=== PATIENT | male | born 1975 | race Caucasian/White ===

== ENCOUNTER 2018-02-24 15:37 | Inpatient (IN) | payer SELFPAY ==
--- NOTE | 2018-02-24 16:01 | EDPHY ---
H & P Stated Complaint: CP Time Seen by Provider: 02/24/18 16:00 HPI/ROS: CHIEF COMPLAINT: [ ] HISTORY OF PRESENT ILLNESS: [Need 4: Location, Duration, Severity, Quality, Context, Timing Modifying Factors, Associated S&S] REVIEW OF SYSTEMS: A comprehensive 10 point review of systems is otherwise negative aside from elements mentioned in the history of present illness. Source: Patient - Personal History Current Tetanus/Diphtheria Vaccine: Unsure Current Tetanus Diphtheria and Acellular Pertussis (TDAP): Unsure - Medical/Surgical History Hx Asthma: No Hx Chronic Respiratory Disease: No Hx Diabetes: No Hx Cardiac Disease: Yes Hx Renal Disease: No Hx Cirrhosis: No Hx Alcoholism: No Hx HIV/AIDS: No Hx Splenectomy or Spleen Trauma: No Other PMH: HTN, appy, - Social History Smoking Status: Never smoked - Physical Exam Exam: General Appearance: [Alert, no distress] Eyes: [Pupils equal and round no pallor or injection] ENT, Mouth: [Mucous membranes moist] Respiratory: [There are no retractions, lungs are clear to auscultation] Cardiovascular: [Regular rate and rhythm] Gastrointestinal: [Abdomen is soft and nontender, no masses, bowel sounds normal] Neurological: [A&O, normal motor function, normal sensory exam, normal cranial nerves] Skin: [Warm and dry, no rashes] Musculoskeletal: [Neck is supple nontender] Extremities: [symmetrical, full range of motion] Psychiatric: [Patient is oriented X 3, there is no agitation] Constitutional: Initial Vital Signs Temperature (C) 37 C 02/24/18 15:46 Heart Rate 106 H 02/24/18 15:46 Respiratory Rate 16 02/24/18 15:46 Blood Pressure 229/153 H 02/24/18 15:46 O2 Sat (%) 97 02/24/18 15:46 O2 Delivery Mode Room Air Allergies/Adverse Reactions: Sulfa (Sulfonamide Antibiotics) Allergy (Verified 02/24/18 15:44) Departure - Departure Referrals: NONE *PRIMARY CARE P,. [Primary Care Provider] - As per Instructions
--- NOTE | 2018-02-24 16:10 | EDPHY ---
HPI/HX/ROS/PE/MDM Narrative: CHIEF COMPLAINT: Chest pain HISTORY OF PRESENT ILLNESS: This patient is a 42 year old male with history of hypertension complaining of chest pain. Over the past week, he has experienced episodic chest discomfort. He describes this as a dull ache. He also has brief sharp midsternal pains, occasionally slightly to the right, which are associated with exertion. He has experienced the pain when doing much less activity than he unusually does. Today was walking to work, and had considerable discomfort around 9/10-10/10 pain, so severe he had to stop all activities. No shortness of breath, palpitations, diaphoresis. Currently, this has resolved somewhat and he rates his discomfort at about 2/10 severity. The patient had acid reflux symptoms several days ago, but his current symptoms do not feel similar. Denies personal history of hyperlipidemia or diabetes. He is adopted and does not know whether there is any family history of CAD at an early age. Nonsmoker. Endorses marijuana use. No recent cocaine methamphetamine or other illicit drug use. No fever, chills, shortness of breath, palpitations, vomiting, diarrhea, urinary complaints, headache, lightheadedness. REVIEW OF SYSTEMS: A comprehensive 10 system review of systems is otherwise negative aside from elements mentioned in the history of present illness and medical decision making. PAST MEDICAL HISTORY: Hypertension (not medicated) SOCIAL HISTORY: Social alcohol use. Nonsmoker. Endorses marijuana use. History of heavy alcohol use and cocaine use in the past. VITAL SIGNS: Reviewed by me. Patient was hypertensive and tachycardic at triage. 229/153, 106 GENERAL: Well-developed, well-nourished, looks well, reports mild discomfort. HEENT: Atraumatic. Eyes: No icterus, no injection. Mouth: moist mucous membranes. No erythema or lesions. Neck: supple with no adenopathy. LUNGS: Clear to auscultation bilaterally, no wheezes, rhonchi or rales. CARDIAC: Regular rate and rhythm, no rubs, murmurs or gallops. ABDOMEN: Soft, nontender, nondistended, bowel sounds normal. BACK: No CVA tenderness. EXTREMITIES: No trauma. No edema. Range of motion is normal throughout. NEURO: Alert and oriented, grossly nonfocal. SKIN: Warm and dry, no rash. PSYCHIATRIC: Normal mentation, no agitation. Portions of this note were transcribed by a medical reception. I personally performed a history, physical exam, medical decision making, and confirmed accuracy of information the transcribed note. ED Course: 42 y/o male presents with exertional chest pain. Patient hypertensive at 229/ 153 at triage. Currently 194/140. Reviewed 12-LEAD EKG: Please see the full report in [facility]. My interpretation: Sinus rhythm. Biatrial enlargement. ST elevation anterior leads suggestive LVH. Compared to prior EKG from 2013. Past medical records reviewed. History of borderline ascending aortic aneurysm on CT chest from 04/12/2013 when patient presented to the ED with chest pain. He states the pain then was different from today and felt as if it were piercing towards his back. He does not have that sensation currently. 16:16 Notified patient's POC troponin 2.73. Plan to consult with cardiology and call cardiac alert. 16:[address] Simpson, nursing unit manager. Plan to call [facility]. Dr. Simpson will consult. Sublingual nitroglycerin given. 16:20 Cardiac alert paged. 16:23 portable chest x-ray obtained. This demonstrates a wide mediastinum. This is of concern given the patient's history an ascending aortic aneurysm visualized in 2012. Patient started on labetalol for hypertension. 16:28 Dr. Simpson at bedside. Recommend blood pressure control, further evaluation with echocardiogram for wall motion abnormalities and CT scan for the chest. Patient's pain has fully resolved with single nitroglycerin. 16:46 Echocardiogram shows evidence of LVH, cardiomyopathy but no wall motion abnormalities. Given history of aortic aneurysm and abnormal CXR today, plan for CTA chest to r/o dissection or other acute processes. He will be admitted to the ICU for further monitoring and evaluation. Per Dr. Simpson, cardiac catheterization may be performed tomorrow on a non-emergent basis unless the patient's status changes following admission. He is currently hemodynamically stable. Nitro has relieved his pain completely. 16:57 Spoke with hospitalist service. Dr. Rose accepts admission to ICU. Dr. Simpson will manage the patient from a cardiac standpoint. Critical care time spent by me, Dr. Schultz exclusively with this patient was 40 minutes, exclusive of PA time and exclusive of procedures. The organ system at risk was cardiac and I gave nitroglycerin, IV antihypertensives, called a cardiac alert, consulted with Cardiology, and admitted to the ICU to prevent worsening of the patients condition. Critical care time included obtaining history, performing a physical exam, bedside monitoring of interventions, collecting and interpreting tests and discussion with consultants but not including time spent performing procedures. MDM: After history and physical examination, the differential for chest pain was considered, including but not limited to, myocardial ischemia, acute coronary syndrome, pulmonary embolus, aortic dissection. - Data Points Imaging Results: CXR Impression: 1. Borderline cardiomegaly has developed. Dictated By: Flip Smith MD CT Angiogram Impression: 1. Borderline dilatation of the ascending thoracic aorta at 4 cm, stable in appearance. No evidence for dissection. 2. Mild cardiomegaly. Results called and discussed with Dr. Bubba Pena on February 24, 2018 at 1751. Dictated By: Man Eastman MD Imaging: Discussed imaging studies w/ call worker Radiologist, I viewed and interpreted images myself Laboratory Results: Laboratory Results 02/24/18 16:00 02/24/18 16:00 Medications Given: Hydrocodone Bitart/Acetaminophen ([place] 5/325) 1 - 2 tab PO Q4HRS PRN PRN Reason: Pain, Moderate Able to Take PO Stop: 03/08/18 12:17 Last Admin: 02/27/18 16:15 Dose: 2 tab Amlodipine Besylate (Norvasc) 5 mg PO DAILY [facility] Stop: 08/26/18 09:59 Last Admin: 02/27/18 11:00 Dose: 5 mg Aspirin Buffered (Aspirin Ec) 81 mg PO DAILY [facility] Stop: 08/24/18 08:59 Last Admin: 02/27/18 09:11 Dose: 81 mg Atorvastatin Calcium (Lipitor) 20 mg PO DAILY [facility] Stop: 08/23/18 16:59 Last Admin: 02/26/18 11:39 Dose: Not Given Chlorhexidine Gluconate (Peridex) 15 ml PO BID [facility] Stop: 08/25/18 20:59 Last Admin: 02/27/18 09:11 Dose: 15 ml Fentanyl (Sublimaze) 50 - 100 mcg IVP Q1HR PRN PRN Reason: Pain, Severe (ok if taking po) Stop: 03/08/18 12:17 Last Admin: 02/27/18 19:32 Dose: 100 mcg Heparin Sodium (Porcine) (Heparin Sc Injection) 5,000 unit SC Q8HRS NE Stop: 08/26/18 05:59 Last Admin: 02/27/18 14:00 Dose: 5,000 unit Dexmedetomidine HCl 400 mcg/ (Sodium Chloride) 104 mls @ 0 mls/hr IV CONT NE; Titrate PRN Reason: Protocol Stop: 08/25/18 07:29 Last Admin: 02/26/18 13:12 Dose: 104 mls Cefazolin Sodium/Dextrose (Ancef 2 Gm) 100 mls @ 200 mls/hr IV Q8HRS NE PRN Reason: Protocol Stop: 02/27/18 22:29 Last Admin: 02/27/18 14:15 Dose: 100 mls Insulin Human Regular 100 unit (/ Sodium Chloride) 101 mls @ 0 mls/hr IV CONT NE; Per Protocol PRN Reason: Protocol Stop: 08/25/18 12:29 Last Admin: 02/26/18 13:42 Dose: 101 mls Sodium Chloride (Ns) 1,000 mls @ 25 mls/hr IV CONT NE Stop: 08/25/18 12:29 Last Admin: 02/26/18 13:18 Dose: 1,000 mls Famotidine/Sodium Chloride (Pepcid 20 Mg (Premix)) 50 mls @ 200 mls/hr IV Q12HRS NE Stop: 08/25/18 20:59 Last Admin: 02/27/18 09:11 Dose: 50 mls Dopamine HCl/Dextrose (Dopamine 1600 Mcg/Ml (Premix)) 250 mls @ 0 mls/hr IV CONT NE; Titrate PRN Reason: Protocol Stop: 08/25/18 15:29 Last Admin: 02/27/18 02:08 Dose: 250 mls Norepinephrine 16 mg/ Sodium (Chloride) 266 mls @ 1.99 mls/hr IV CONT NE; 2 MCG/MIN PRN Reason: Protocol Stop: 08/26/18 12:29 Last Admin: 02/27/18 15:43 Dose: 266 mls Lisinopril (Zestril) 40 mg PO DAILY NE Stop: 08/23/18 16:59 Last Admin: 02/26/18 11:39 Dose: Not Given Metoclopramide HCl (Reglan Injection) 10 mg IVP Q6HRS PRN PRN Reason: Nausea/Vomiting, Can't Take PO Stop: 08/25/18 12:17 Last Admin: 02/27/18 15:26 Dose: 10 mg Morphine Sulfate (Morphine) 2 - 4 mg IVP Q1HR PRN PRN Reason: Pain, Severe Unable to Take PO Stop: 03/08/18 12:17 Last Admin: 02/26/18 20:19 Dose: 4 mg Mupirocin (Bactroban 2%) 1 kandice NS BID NE PRN Reason: Protocol Stop: 02/28/18 20:59 Last Admin: 02/27/18 09:12 Dose: 1 kandice Pantoprazole Sodium (Protonix) 40 mg PO DAILY [facility] Stop: 08/26/18 08:59 Last Admin: 02/27/18 09:11 Dose: 40 mg Senna/Docusate Sodium (Senokot-S) 1 - 2 tab PO BID NE PRN Reason: Protocol Stop: 08/25/18 20:59 Last Admin: 02/27/18 09:11 Dose: 1 tab Discontinued Medications Adenosine (Adenosine) Confirm Administered Dose 12 mg .ROUTE .STK-MED ONE Stop: 02/26/18 06:27 Last Admin: 02/26/18 08:37 Dose: Not Given Albumin Human (Alburx 5) Confirm Administered Dose 1,000 ml IV .STK-MED ONE Stop: 02/26/18 06:28 Last Admin: 02/26/18 08:38 Dose: Not Given Aminocaproic Acid (Amicar) 15 gm IV ONCALL ONE Stop: 02/26/18 06:01 Last Admin: 02/26/18 08:38 Dose: Not Given Amiodarone HCl (Amiodarone Hcl) Confirm Administered Dose 300 mg .ROUTE .STK- MED ONE Stop: 02/26/18 06:27 Last Admin: 02/26/18 08:38 Dose: Not Given Amiodarone HCl (Amiodarone Hcl) Confirm Administered Dose 150 mg .ROUTE .STK- MED ONE Stop: 02/26/18 06:28 Last Admin: 02/26/18 08:38 Dose: Not Given Amlodipine Besylate (Norvasc) 5 mg PO DAILY [facility] Stop: 08/23/18 16:59 Last Admin: 02/26/18 11:38 Dose: Not Given Calcium Chloride (Calcium Chloride) Confirm Administered Dose 3 gm .ROUTE .ST- MED ONE Stop: 02/26/18 06:26 Last Admin: 02/26/18 08:38 Dose: Not Given Calcium Chloride (Calcium Chloride) Confirm Administered Dose 3 gm .ROUTE .[facility]- MED ONE Stop: 02/26/18 06:28 Last Admin: 02/26/18 08:38 Dose: Not Given Cefazolin Sodium (Ancef) Confirm Administered Dose 2 gm .ROUTE .[facility] ONE Stop: 02/26/18 06:27 Last Admin: 02/26/18 11:39 Dose: Not Given Chlorhexidine Gluconate (Hibiclens) 1 btl TP DAILY@2100 NE Stop: 02/25/18 21:01 Last Admin: 02/25/18 23:00 Dose: 1 btl Dopamine HCl/Dextrose (Dopamine 1600 Mcg/Ml (Premix)) Confirm Administered Dose 400 mg IV .[facility] ONE Stop: 02/26/18 06:26 Last Admin: 02/26/18 08:40 Dose: Not Given Furosemide (Lasix Injection) 20 mg IV ONCE ONE Stop: 02/26/18 23:31 Last Admin: 02/26/18 23:22 Dose: 20 mg Heparin Sodium (Porcine) (Heparin Injection) Confirm Administered Dose 10,000 unit .ROUTE .[facility] ONE Stop: 02/26/18 06:26 Last Admin: 02/26/18 08:40 Dose: Not Given Heparin Sodium (Porcine) (Heparin Injection) Confirm Administered Dose 4,000 unit .ROUTE .[facility] ONE Stop: 02/26/18 06:28 Last Admin: 02/26/18 08:40 Dose: Not Given Hydromorphone HCl (Dilaudid Gas Shovel Operator) 6 mg IV PRN PRN; Protocol PRN Reason: Pain, Severe Unable To Take Po Stop: 03/08/18 19:21 Last Admin: 02/27/18 05:56 Dose: 6 mg Labetalol HCl 200 mg/ Dextrose 200 mls @ 0 mls/hr IV EDNOW ONE; As Directed PRN Reason: Protocol Stop: 02/24/18 17:31 Last Admin: 02/24/18 17:57 Dose: 200 mls Sodium Bicarbonate 20 meq/Lidocaine HCl 10 ml/Parenteral Electrolytes 1,030 mls @ 0 mls/hr MISC ONCALL ONE PRN Reason: As Directed Stop: 02/26/18 06:01 Last Admin: 02/26/18 08:45 Dose: Not Given Cefazolin Sodium/Dextrose (Ancef 2 Gm) 100 mls @ 200 mls/hr IV ONCALL ONE PRN Reason: Protocol Stop: 02/26/18 06:29 Last Admin: 02/26/18 07:45 Dose: 100 mls Dopamine HCl/Dextrose (Dopamine 1600 Mcg/Ml (Premix)) 250 mls @ 0 mls/hr IV ONCALL ONE PRN Reason: As Directed Stop: 02/26/18 06:01 Last Admin: 02/26/18 08:40 Dose: Not Given Insulin Human Regular 100 unit (/ Sodium Chloride) 101 mls @ 0 mls/hr IV ONCALL ONE PRN Reason: As Directed Stop: 02/26/18 06:01 Last Admin: 02/26/18 08:40 Dose: Not Given Norepinephrine 16 mg/ Sodium (Chloride) 266 mls @ 0 mls/hr IV ONCALL ONE PRN Reason: As Directed Stop: 02/26/18 06:01 Last Admin: 02/26/18 08:44 Dose: Not Given Phenylephrine HCl 50 mg/ (Sodium Chloride) 255 mls @ 0 mls/hr IV ONCALL ONE PRN Reason: As Directed Stop: 02/26/18 06:01 Last Admin: 02/26/18 08:44 Dose: Not Given Verapamil HCl 5 mg/Nitroglycerin 2.5 mg/ Heparin Sodium (Porcine) 500 unit/ Sodium Bicarbonate 0.2 meq/Lactated Ringer's 303.2 mls @ 0 mls/hr MISC ONCALL ONE PRN Reason: As Directed Stop: 02/26/18 06:01 Last Admin: 02/26/18 07:15 Dose: 303.2 mls Nicardipine/Sodium Chloride (Cardene 0.1 Mg/Ml (Premix)) 200 mls @ 0 mls/hr IV ONCALL ONE PRN Reason: As Directed Stop: 02/26/18 06:01 Last Admin: 02/26/18 08:43 Dose: Not Given Heparin Sodium (Porcine) (Heparin 50 Units/Ml (Premix)) 500 mls @ 0 mls/hr IV CONT NE; Per Protocol PRN Reason: Protocol Stop: 03/05/19 15:44 Last Admin: 02/25/18 20:37 Dose: 500 mls Lactated Ringer's (Lr) 1,000 mls @ 0 mls/hr IV ONCE ONE PRN Reason: Per Protocol Stop: 02/26/18 06:42 Last Admin: 02/26/18 06:49 Dose: 1,000 mls Nitroglycerin/Dextrose (Nitroglycerin 200 Mcg/Ml (Premix)) 250 mls @ 0 mls/hr IV CONT NE; Titrate PRN Reason: Protocol Stop: 08/25/18 09:59 Last Admin: 02/26/18 13:11 Dose: 250 mls Sodium Nitroprusside 50 mg/ (Dextrose) 252 mls @ 0 mls/hr IV ONCALL ONE; Titrate PRN Reason: Protocol Stop: 02/26/18 11:31 Last Admin: 02/26/18 13:44 Dose: Not Given Nicardipine/Sodium Chloride (Cardene 0.1 Mg/Ml (Premix)) 200 mls @ 0 mls/hr IV CONT NE; Titrate PRN Reason: Protocol Stop: 08/25/18 12:29 Last Admin: 02/26/18 13:12 Dose: 200 mls Potassium Chloride (Potassium Cl 20 Meq (Premix)) 50 mls @ 0 mls/hr IV PRN PRN ; Protocol; As Directed PRN Reason: K+ 4mEq/L or below Stop: 02/27/18 06:17 Last Admin: 02/26/18 13:49 Dose: 50 mls Dopamine HCl/Dextrose (Dopamine 1600 Mcg/Ml (Premix)) 250 mls @ 0 mls/hr IV ONCALL ONE PRN Reason: As Directed Stop: 02/26/18 15:01 Last Admin: 02/26/18 12:25 Dose: 250 mls Albumin Human (Alburx 5) 500 mls @ 0 mls/hr IV ONCE ONE PRN Reason: As Directed Stop: 02/27/18 12:31 Last Admin: 02/27/18 12:32 Dose: 500 mls Labetalol HCl (Trandate Injection) 20 mg IVP EDNOW ONE Stop: 02/24/18 16:30 Last Admin: 02/24/18 16:32 Dose: 20 mg Lidocaine HCl (Lidocaine Hcl 2%) Confirm Administered Dose 200 mg .ROUTE .STK- MED ONE Stop: 02/26/18 06:28 Last Admin: 02/26/18 08:40 Dose: Not Given Lorazepam (Ativan Injection) 1 mg IVP EDNOW ONE Stop: 02/24/18 16:41 Last Admin: 02/24/18 16:43 Dose: 1 mg Lorazepam (Ativan Injection) 0.5 - 1 mg IVP Q4HRS PRN PRN Reason: Anxiety, Unable to Take PO Stop: 08/23/18 16:48 Last Admin: 02/25/18 23:40 Dose: 1 mg Magnesium Sulfate (Magnesium Sulfate) Confirm Administered Dose 4 gm .ROUTE .STK -MED ONE Stop: 02/26/18 06:29 Last Admin: 02/26/18 08:41 Dose: Not Given Mannitol (Mannitol 25%) 25 gm IVP ONCALL ONE Stop: 02/26/18 06:01 Last Admin: 02/26/18 08:41 Dose: Not Given Methylprednisolone Sodium Succinate (Solu-Medrol) Confirm Administered Dose 1 gm .ROUTE .STK-MED ONE Stop: 02/26/18 06:29 Last Admin: 02/26/18 08:42 Dose: Not Given Metoprolol Tartrate (Lopressor) 50 mg PO Q6HRS NE Stop: 02/26/18 12:01 Last Admin: 02/26/18 13:11 Dose: Not Given Midazolam HCl (Versed) 2 mg IVP ONCALL ONE Stop: 02/26/18 07:06 Last Admin: 02/26/18 07:13 Dose: 2 mg Milrinone Lactate/Dextrose (Primacor 200 Mcg/Ml (Premix)) Confirm Administered Dose 20 mg IV .STK-MED ONE Stop: 02/26/18 06:26 Last Admin: 02/26/18 08:42 Dose: Not Given Mupirocin (Bactroban 2%) 1 kandice NS ONCE ONE Stop: 02/26/18 06:01 Last Admin: 02/26/18 06:39 Dose: 0.5 gm Nicardipine/Sodium Chloride (Cardene 0.1 Mg/Ml (Premix)) Confirm Administered Dose 20 mg IV .STK-MED ONE Stop: 02/26/18 06:27 Last Admin: 02/26/18 08:42 Dose: Not Given Nitroglycerin (Nitrostat) 0.4 mg SL EDNOW ONE Stop: 02/24/18 16:25 Last Admin: 02/24/18 16:24 Dose: 0.4 mg Nitroglycerin/Dextrose (Nitroglycerin 200 Mcg/Ml (Premix)) Confirm Administered Dose 50 mg IV .STK-MED ONE Stop: 02/26/18 06:27 Last Admin: 02/26/18 08:44 Dose: Not Given Pantoprazole Sodium (Protonix) 40 mg IVP ONCE ONE Stop: 02/26/18 12:19 Last Admin: 02/26/18 14:24 Dose: 40 mg Papaverine HCl (Papaverine) Confirm Administered Dose 60 mg .ROUTE .STK-MED ONE Stop: 02/26/18 07:12 Last Admin: 02/26/18 07:15 Dose: 60 mg Protamine Sulfate (Protamine Sulfate) Confirm Administered Dose 400 mg IVP .STK- MED ONE Stop: 02/26/18 06:26 Last Admin: 02/26/18 08:45 Dose: Not Given Sodium Bicarbonate (Sodium Bicarbonate) Confirm Administered Dose 350 meq .ROUTE .STK-MED ONE Stop: 02/26/18 06:26 Last Admin: 02/26/18 08:45 Dose: Not Given Sodium Bicarbonate (Sodium Bicarbonate) 50 meq IVP ONCE ONE Stop: 02/26/18 16:01 Last Admin: 02/26/18 15:45 Dose: 50 meq Sodium Citrate (Acd-A) 500 ml MISC ONCALL ONE Stop: 02/26/18 06:01 Last Admin: 02/26/18 08:39 Dose: Not Given Sodium Citrate (Acd-A) Confirm Administered Dose 500 ml .ROUTE .STK-MED ONE Stop: 02/26/18 06:28 Last Admin: 02/26/18 08:39 Dose: Not Given Verapamil HCl (Verapamil Hcl) Confirm Administered Dose 5 mg .ROUTE .STK-MED ONE Stop: 02/26/18 07:12 Last Admin: 02/26/18 07:15 Dose: 5 mg Point of Care Test Results: Chemistry 02/24/18 02/24/18 16:29 16:00 POC Troponin I 2.72 ng/mL H ng/mL 2.73 ng/mL H ng/mL (0.00-0.08) (0.00-0.08) General Time Seen by Provider: 02/24/18 16:00 Initial Vital Signs: Initial Vital Signs Temperature (C) 37 C 02/24/18 15:46 Heart Rate 106 H 02/24/18 15:46 Respiratory Rate 16 02/24/18 15:46 Blood Pressure 229/153 H 02/24/18 15:46 O2 Sat (%) 97 02/24/18 15:46 O2 Delivery Mode Nasal Cannula O2 (L/minute) 2 Allergies/Adverse Reactions: Sulfa (Sulfonamide Antibiotics) Allergy (Verified 02/24/18 15:44) Home Medications: Medication Instructions Recorded Aspirin [Aspirin 325 mg (*)] 325 - 650 mg PO DAILY PRN 02/24/18 Herbals/Supplements -Info Only 1 ea PO DAILY 02/24/18 Departure - Departure Disposition: [facility] Inpatient Acute Clinical Impression: Acute coronary syndrome, Hypertensive emergency Hypertension Qualifiers: Hypertension type: essential hypertension Qualified Code(s): I10 - Essential ( primary) hypertension Chest pain Qualifiers: Chest pain type: chest pain due to myocardial ischemia Ischemic chest pain type : unspecified angina pectoris type Qualified Code(s): I25.9 - Chronic ischemic heart disease, unspecified Condition: Serious Report Scribed for: Brenda Schultz Report Scribed by: Kylie Ramey Date of Report: 02/24/18 Time of Report: 19:11
[2018-02-24] MEDS ORDERED: NITROGLYCERIN 0.4 MG BTL SL ONE ×2 (16:21→16:24)
[2018-02-24] MEDS ORDERED: LABETALOL HCL 5 MG/ML 20 ML MDV ONE (16:23)
[2018-02-24] MEDS ORDERED: LIDOCAINE 1% 300 MG/30 ML SDV ONE (16:24)
[2018-02-24] MEDS ORDERED: fentaNYL 100 MCG/2 ML INJ ONE (16:25)
[2018-02-24] MEDS ORDERED: IOPAMIDOL (ISOVUE-370) 150 ML BTL IV ONE (16:25)
[2018-02-24] MEDS ORDERED: MIDAZOLAM 2 MG/2 ML VIAL ONE (16:25)
[2018-02-24 16:26] LABS: PLATELET COUNT 189 10^3/uL (150-400)
[2018-02-24] MEDS ORDERED: LABETALOL HCL 5 MG/ML 20 ML MDV IVP ONE (16:29)
[2018-02-24] MEDS ORDERED: LABETALOL HCL 200 MG in D5W 200 ML IV SCH (16:30)
[2018-02-24] MEDS ORDERED: LORazepam 2 MG/ML INJ IVP ONE (16:40)
[2018-02-24] MEDS ORDERED: IOPAMIDOL (ISOVUE 370) 100 ML BTL IV ONE (16:51)
[2018-02-24] MEDS ORDERED: NITROGLYCERIN/DEXTROSE 250 ML IV SCH (17:00)
--- NOTE | 2018-02-24 17:03 | PDCARCONS ---
Cardiology Consult Reason for Consult: Chest pain abnormal EKG Chief Complaint: Chest pain Requesting Physician: Earlene History of Present Illness: 42-year-old male longstanding history of hypertension since childhood, noncompliant with medications over considerable amount of time presenting with a several week history of episodic chest discomfort. This has occurred with exertion. Last night it occurred at rest. He came to the emergency department for further evaluation. On arrival patient was found to be significantly hypertensive with systolic pressure of 250/150. He was having significant discomfort. This was relieved with nitroglycerin and labetalol. On my arrival he is pain-free. He denies shortness of breath. He has had no nausea vomiting. He has had no pain radiating to the back or groin. He has had no history of hematemesis or melena. He has had no syncope or near syncope. Patient does smoke. He has no history of diabetes or hyperlipidemia. He has not had a workup for secondary causes of hypertension. He had been on lisinopril in the past but has not been on medications for some time due to lack of insurance. Patient works as a natural resources technician. He does report binge alcohol use, occasional cocaine use, daily use of marijuana through edibles. EKG on my arrival shows left ventricular hypertrophy with left axis deviation. I can see ST elevation in the anterior precordial leads consistent with LVH. Nondiagnostic for ST segment elevation myocardial infarction. Echocardiogram done shows a hypertensive cardiomyopathy with reduced LV systolic function considerable left ventricular hypertrophy and no regional wall motion abnormalities. The proximal aorta is well seen and there is no dissection flap within the field of view. There is no pericardial effusion. History Information - Allergies/Home Medication List Allergies/Adverse Reactions: Sulfa (Sulfonamide Antibiotics) Allergy (Verified 02/24/18 15:44) Home Medications: Aspirin [Aspirin 325 mg (*)] 325 - 650 mg PO DAILY PRN 02/24/18 [Last Taken 11/06 16:00 650mg] Herbals/Supplements -Info Only 1 ea PO DAILY 02/24/18 [Last Taken Unknown] I have personally reviewed and updated: family history, medical history, social history, surgical history Past Medical History: - Past Medical History hypertension - Family History Positive for: non-pertinent - Social History Smoking Status: Current every day smoker Alcohol Use: Heavy Drug Use: Cocaine, Marijuana (cocaine use) Physical Exam Physical Exam: Temp Pulse Resp BP Pulse Ox 37 C 87 18 176/129 H 97 02/24/18 15:46 02/24/18 16:45 02/24/18 16:45 02/24/18 16:45 02/24/18 16:45 O2 (L/minute) 2 Constitutional: no apparent distress, not in pain Eyes: PERRL, anicteric sclera Ears, Nose, Mouth, Throat: moist mucous membranes Cardiovascular: regular rate and rhythym, pulses symmetric bilaterally, other ( S4), No JVD, No carotid bruit Peripheral Pulses: 1+: carotid (R), carotid (L), femoral (R), femoral (L), dorsalis-pedis (R), dorsalis-pedis (L) Respiratory: no respiratory distress, no rales or rhonchi, clear to auscultation Gastrointestinal: normoactive bowel sounds, soft, non-tender abdomen, no palpable masses Genitourinary: no bladder fullness Skin: warm, normal color, No rash Musculoskeletal: full muscle strength, no muscle tenderness Neurologic: sensation intact bilaterally, No weakness, No facial droop Psychiatric: interacting appropriately Lymph, Heme, Immunologic: no cervical LAD, no supraclavicular LAD Lab and Imaging 02/24/18 16:00 02/24/18 16:00 WBC 7.04 10^3/uL (3.80-9.50) 02/24/18 16:00 RBC 5.12 10^6/uL (4.40-6.38) 02/24/18 16:00 Hgb 15.2 g/dL (13.7-17.5) 02/24/18 16:00 POC Hgb 14.6 gm/dL (13.7-17.5) 02/24/18 16:35 Hct 42.6 % (40.0-51.0) 02/24/18 16:00 POC Hct 43 % (40-51) 02/24/18 16:35 MCV 83.2 fL (81.5-99.8) 02/24/18 16:00 MCH 29.7 pg (27.9-34.1) 02/24/18 16:00 MCHC 35.7 g/dL (32.4-36.7) 02/24/18 16:00 RDW 13.6 % (11.5-15.2) 02/24/18 16:00 Plt Count 189 10^3/uL (150-400) 02/24/18 16:00 MPV 9.3 fL (8.7-11.7) 02/24/18 16:00 Neut % (Auto) 65.1 % (39.3-74.2) 02/24/18 16:00 Lymph % (Auto) 22.3 % (15.0-45.0) 02/24/18 16:00 Schleicher % (Auto) 8.0 % (4.5-13.0) 02/24/18 16:00 Eos % (Auto) 3.0 % (0.6-7.6) 02/24/18 16:00 Baso % (Auto) 0.6 % (0.3-1.7) 02/24/18 16:00 Nucleat RBC Rel Count 0.0 % (0.0-0.2) 02/24/18 16:00 Absolute Neuts (auto) 4.59 10^3/uL (1.70-6.50) 02/24/18 16:00 Absolute Lymphs (auto) 1.57 10^3/uL (1.00-3.00) 02/24/18 16:00 Absolute Monos (auto) 0.56 10^3/uL (0.30-0.80) 02/24/18 16:00 Absolute Eos (auto) 0.21 10^3/uL (0.03-0.40) 02/24/18 16:00 Absolute Basos (auto) 0.04 10^3/uL (0.02-0.10) 02/24/18 16:00 Absolute Nucleated RBC 0.00 10^3/uL (0-0.01) 02/24/18 16:00 Immature Gran % 1.0 % (0.0-1.1) 02/24/18 16:00 Immature Gran # 0.07 10^3/uL (0.00-0.10) 02/24/18 16:00 POC Sodium 142 mEq/L (135-145) 02/24/18 16:35 Sodium 140 mEq/L (135-145) 02/24/18 16:00 POC Potassium 3.9 mEq/L (3.3-5.0) 02/24/18 16:35 Potassium 4.2 mEq/L (3.3-5.0) 02/24/18 16:00 POC Chloride 105 mEq/L (97-110) 02/24/18 16:35 Chloride 106 mEq/L (97-110) 02/24/18 16:00 Carbon Dioxide 25 mEq/l (22-31) 02/24/18 16:00 Anion Gap 9 mEq/L (8-16) 02/24/18 16:00 POC BUN 14 mg/dL (7-23) 02/24/18 16:35 BUN 16 mg/dL (7-23) 02/24/18 16:00 Creatinine 1.1 mg/dL (0.7-1.3) 02/24/18 16:00 POC Creatinine 1.2 mg/dL (0.7-1.3) 02/24/18 16:35 Estimated GFR > 60 02/24/18 16:00 Glucose 103 mg/dL (70-100) H 02/24/18 16:00 POC Glucose 101 mg/dL (70-100) H 02/24/18 16:35 Calcium 9.3 mg/dL (8.5-10.4) 02/24/18 16:00 POC Troponin I 2.72 ng/mL (0.00-0.08) H 02/24/18 16:29 Visualized and Interpreted Chest x-ray results: Yes Interpretation: Chest x-ray show prominence of aortic concerning for aortic dilatation. EKG Interpretation: Positive for: LVH A/P Assessment: 42-year-old male presenting with hypertensive emergency. Clinical history concerning for progressive angina in the setting of hypertension likely due to wall stress. Elevation in troponin suggest injury. EKG consistent with LVH and strain. Echo shows a hypertensive cardiomyopathy. Patient has had significant improvement with nitroglycerin. He has been administered labetalol with can improved blood pressure and heart rate. He has been given Ativan for anxiety. At this point he is clinically stable. Recommendations are for CT scan of the aorta to exclude dissection. Pending this result will plan for heparin and aggressive control blood pressure overnight. Risk stratification in the morning. Assessment for other end-organ damage with urinalysis. Drug screen to exclude other toxins. Aggressive secondary prevention. Low threshold to proceed to the catheterization lab tonight for recurrent symptoms or EKG changes or hemodynamic instability. Plan: Blood pressure control with beta-logan, nitrates, calcium logan, Sreekanth inhibitor. CT scan of the aorta tonight. Heparin pending result. Risk stratification in the morning, likely by angiography. Consider renal artery injection at that time to exclude renal artery stenosis. Review of Systems Review of Systems: - Review of Systems Constitutional: denies: chills, fever, malaise EENTM: no symptoms reported Respiratory: no symptoms reported Cardiac: chest pain. denies: edema, irregular heart rate, lightheadedness, palpitations, syncope Gastrointestinal/Abdominal: no symptoms reported Genitourinary: no symptoms Musculoskelatal: no symptoms Skin: no symptoms Neurological: anxiety Hematologic/Lymphatic: no symptoms reported
[2018-02-24] MEDS ORDERED: LABETALOL HCL 200 MG in D5W 200 ML IV ONE (17:30)
--- NOTE | 2018-02-24 17:48 | ASMTCMCOM ---
CM Note CM Note Notes: Pt presented to the ED through triage for chest pain and a Cardiac Alert was called. Pt has a history of untreated/unmanaged HTN since childhood. Pt used to take Lisinopril but hasn't been on medication recently due to lack of insurance. Pt also reports a past history of ETOH and cocaine use. Spoke w/pt and he states he contacted his friend Ranjit Wilde ([phone]) who later arrived to the ED. Pt requested assistance w/contacting his roommate, Rogerio Shelton ([phone]); this CM called but it went to voicemail and the message inbox was full. Ranjit states he will continue to try to contact Rogerio. Pt's mother, Yanna Collier ([phone]) lives in [place]; pt does not want her contacted at this time and will let staff know if he changes his mind. Pt states he also has a couple of brothers that don't live locally. Exact DC needs TBD/ unknown; pt would probably benefit from financial counseling, primary care referral, and possibly substance abuse resources if pt is interested, etc. CM to follow. Date Signed: 02/24/2018 05:48 PM Electronically Signed By:Usha Ann RN
[2018-02-24 18:21] LABS: CREATINE KINASE 160 IU/L (0-224)
[2018-02-24] MEDS ORDERED: NITROGLYCERIN/D5W 50 MG/250 ML BOTTLE IV ONE (18:30)
--- NOTE | 2018-02-24 18:51 | CPEKG ---
Test Reason : OPEN Blood Pressure : / mmHG Vent. Rate : 083 BPM Atrial Rate : 083 BPM P-R Int : 166 ms QRS Dur : 098 ms QT Int : 406 ms P-R-T Axes : 065 -19 -25 degrees QTc Int : 477 ms Sinus rhythm Biatrial enlargement Left ventricular hypertrophy Inferior infarct, age indeterminate Anterior infarct, old Confirmed by Brenda Schultz ([id number]) on 02/24/2018 6:51:16 PM Referred By: Confirmed By:Brenda Schultz
[2018-02-24] MEDS: ATORVASTATIN CALCIUM 20 MG TAB PO SCH (19:27)
[2018-02-24] MEDS: LISINOPRIL 40 MG TAB PO SCH (19:27)
[2018-02-24] MEDS: amLODIPine BESYLATE 5 MG TAB PO SCH (19:27)
[2018-02-24] MEDS: METOPROLOL TARTRATE 50 MG TAB PO SCH ×2 (19:27→23:11)
[2018-02-24 20:43] LABS: CREATINE KINASE 161 IU/L (0-224)
--- NOTE | 2018-02-24 20:51 | GHP ---
DATE OF ADMISSION: 02/24/2018 CHIEF COMPLAINT: Chest pain. HISTORY: This is a 42-year-old man with a longstanding history of untreated hypertension. He notes he has been diagnosed with high blood pressure essentially as a child. For the last week he has been having intermittent chest pain that over the last 24 hours became more severe and was occurring at r est when previously was only occurring with exertion. Upon arrival in the emergency department, he w as noted to have a blood pressure of 250/150 and was in significant amount of pain and was brought in as a cardiac alert. Ultimately, he was evaluated by Cardiology who did not feel that he required to go urgently to the rd lab technician. At the time of my evaluation, patient notes that his chest pain has no w resolved. He notes that other than some residual anxiety, currently feels well. He denies any rachel rtness of breath, nausea, vomiting, constipation, or diarrhea. PAST MEDICAL HISTORY: Includes hypertension with medication noncompliance. PAST SURGICAL HISTORY: Appendectomy. FAMILY HISTORY: Reviewed and is non pertinent. SOCIAL HISTORY: The patient is a daily tobacco user. He uses marijuana and cocaine occasionally. 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 He does admit to binge drinking behaviors. REVIEW OF SYSTEMS: A 10-point review of systems obtained and negative except as per HPI. HOME MEDICATIONS: Aspirin. ALLERGIES: Sulfa. PHYSICAL EXAMINATION: VITAL SIGNS: Currently blood pressure 165/114, heart rate 70, respiratory rat e 14, O2 saturation 94% on room air, temperature 36.7. GENERAL APPEARANCE: Well-developed, well-nou rished man who is awake and alert. He is in no acute distress. EYES: Anicteric. HENT: Oropharynx clear. CARDIOVASCULAR: Regular rate and rhythm, somewhat distant, without appreciated murmurs, rub s, or gallops. PULMONARY: CTA bilaterally. ABDOMEN: Soft, nontender, nondistended. EXTREMITIES: No clubbing, cyanosis, or edema. SKIN: Warm, dry, well perfused. NEURO/PSYCH: Oriented and appro priate. CLINICAL DATA: EKG personally reviewed and interpreted, showing LVH and LAD. There is ST elevation anterior leads that is most likely secondary to LVH. Chest x-ray personally reviewed and interpreted, shows borderline cardiomegaly, otherwise unremarkabl e. Chest and thorax CTA shows borderline dilation of the ascending thoracic aorta at 4 cm, stable in kandice earance without evidence of dissection. Echocardiogram was performed at bedside in the emergency department showing evidence of hypertensive cardiomyopathy with decreased LV function, but no regional wall motion abnormalities. LABORATORY DATA: CBC is unremarkable. Initial troponin elevated at 2.73. BNP of 1900, glucose of 1 01. ASSESSMENT/PLAN: This is a 42-year-old man with a longstanding history of untreated hypertension, pr esenting with acute coronary syndrome: 1. Acute coronary syndrome: The patient admitted with chest pain. Troponin elevation of 2.7. The patient does not have evidence of STEMI by EKG findings nor dynamic EKG changes and he is currently c hest pain free. Plan is for coronary angiogram in the morning. We will continue to trend troponins overnight. Cardiology has initiated nitroglycerin drip which will be continued overnight. 2. CT angiogram ruled out dissection or other etiology for his chest pain. Lipid panel and hemoglob in A1c will be obtained for help with secondary prevention. 3. Hypertensive emergency in the setting of above: The patient is currently on a nitroglycerin drip as per above with blood pressure improved. He has also been started on amlodipine, lisinopril, and metoprolol after receiving IV push labetalol in the emergency department. We will offer some degree of permissive hypertension with a goal of trying to reduce his blood pressure by about 25%. 4. Hypertensive cardiomyopathy: Formal echocardiogram report is currently pending, but this is note d per Dr. Simpson on his read of echocardiogram. Again, plan for angiography in the morning. 5. Hyperglycemia: Again, ordering a hemoglobin A1c. 6. Inpatient status: The patient will require greater than 48 hours stay for evaluation and managem ent of above given high risk presenting issues. 7. Patient is new to my care: Old records reviewed, summarized as per HPI and past medical history. Care plan reviewed with ER physician including plans for cardiology consultation. /[id number]/MODL
[2018-02-25 00:36] LABS: CREATINE KINASE 146 IU/L (0-224)
[2018-02-25 03:00] LABS: CREATINE KINASE 137 IU/L (0-224)
[2018-02-25] MEDS: METOPROLOL TARTRATE 50 MG TAB PO SCH ×4 (06:26→23:41)
[2018-02-25] MEDS: ATORVASTATIN CALCIUM 20 MG TAB PO SCH (08:09)
[2018-02-25] MEDS: amLODIPine BESYLATE 5 MG TAB PO SCH (08:09)
[2018-02-25] MEDS: LISINOPRIL 40 MG TAB PO SCH (08:09)
[2018-02-25] MEDS: ASPIRIN EC 81 MG TAB PO SCH (08:09)
--- NOTE | 2018-02-25 08:50 | PDPROPOC ---
Sedation Plan of Care Sedation Plan of Care: vital signs stable, mental status noted, patient educated of risks, benefits, alternatives, patient can tolerate sedation ASA Classification: ASA 3 Planned drugs: fentanyl, midazolam Mallampati Score: Class 1 Mallampati Reference Image: Patient passed 3-3-2 rule?: Yes
[2018-02-25] MEDS ORDERED: HEPARIN 10,000 UNIT/10 ML MDV (1,000 UNIT/ML) ONE (10:51)
[2018-02-25] MEDS ORDERED: VERAPAMIL 5 MG/2 ML VIAL ONE (10:51)
[2018-02-25] MEDS ORDERED: IOPAMIDOL (ISOVUE-370) 150 ML BTL IV ONE (10:51)
[2018-02-25] MEDS ORDERED: fentaNYL 100 MCG/2 ML INJ ONE (10:51)
[2018-02-25] MEDS ORDERED: MIDAZOLAM 2 MG/2 ML VIAL ONE (10:51)
[2018-02-25] MEDS ORDERED: LIDOCAINE 1% 300 MG/30 ML SDV ONE (10:51)
--- NOTE | 2018-02-25 11:13 | PDMN ---
Medical Necessity Medical necessity: Pt meets inpt criteria per MD order and MCG M-197, Hypertension, 2 days. Est LOS>2MN for management of hypertensive emergency (250/ 150 on admission, most recent 174/129) and chest pain, concerning for progressive angina, troponins elevated trending up, CK-MB's elevated, EKG consistent w/LVH and strain, ECHO shows hypertensive cardiomyopathy, relief of cp w/nitroglycerin. Angiogram in AM, NTG gtt overnight, BP control, ICU monitoring.
--- NOTE | 2018-02-25 11:59 | PDDXCAT ---
Diagnostic Cath Note - . Date: 02/25/18 Shaker Repairer: Calvin Indication: CCC Class III and IV angina on medical treatment High-risk criteria on non-invasive testing: severe resting left ventricular dysfunction (LVEF<35%) - Procedure Access: right wrist Procedure: left heart catheterization, coronary angiography, left ventriculogram , other (Abdominal aortogram) - Materials Left Heart Cath size: 5F Left Heart Cath materials: JL3.5, JR4.0, pigtail - Findings-Left Heart Catheterization LM: Unobstructed LAD: Large vessel 100% obstructed after a very large septal ripsaw matcher. LCX: 75% mid vessel stenosis RCA: Dominant vessel: 99% occluded proximally Ramus: Widely patent EDP: 12 mm of mercury LVEF: 35% Wall motion: Inferior hypokinesis. Abdominal aortogram reveals dual renal arteries to the right without focal stenosis. Single renal artery to the left without focal stenosis. No aneurysm within the field of view. Complications: None Estimated blood loss: <50ml Closure method: TR Band Assessment: Severe three-vessel coronary disease in the setting of severe LV dysfunction. No evidence of renal artery stenosis. Plan: Recommend coronary artery bypass grafting. If patient declines would consider PCI and stenting of the LAD followed by staged RCA circumflex revascularization. Patient will need aggressive medical therapy with clinical follow-up. Patient Problems: Problems Problem Status Onset Acute coronary syndrome Acute Hypertension Acute Hypertensive emergency Acute
[2018-02-25] MEDS ORDERED: HEPARIN/DEXTROSE 500 ML IV SCH ×2 (12:15→15:45)
--- NOTE | 2018-02-25 13:00 | GCON ---
DATE OF CONSULTATION: 02/25/2018 Patient is seen at the request of Dr. Simpson with the patient's permission. IMPRESSION: 1. [id number] myocardial infarction. 2. Hypertensive crisis. 3. Sulfa allergy. 4. Enlarged ascending aorta. RECOMMENDATIONS: This gentleman should stay in-house and undergo urgent coronary artery revasculariz ation with arterial conduits where suitable. We will use both internal mammary arteries if adequate and resect his left radial artery if adequate collateral flow exists. The remainder will be performe d with a venous conduit. We also will replace his ascending aorta and manage his left atrial appenda ge. Risks and complications were reviewed at length with the patient. He has no immediate family th at he wishes us to discuss it with. CHIEF COMPLAINT: A 42-year-old with a longstanding history of hypertension since childhood with hype rtensive heart disease on echo. He presented with episodic chest discomfort which persisted at home on the evening of admission, was admitted with blood pressure 250/150 and having significant discomfo rt relieved with nitroglycerin and labetalol. He was taken to the laborer general today and found to have s evere 3-vessel disease with moderate to severe LV dysfunction with inferior wall akinesis. He was al so noted to have a 4.1 cm ascending aorta. By history, aortic dissection was ruled out by echo and c ath. MEDICAL HISTORY: Otherwise as stated on his previous consults and includes hypertension. FAMILY HISTORY: None pertinent. The patient was adopted and knows of no medical history on his biol ogical side. SOCIAL HISTORY: He smokes every other day. Heavy alcohol abuse. Occasional cocaine and marijuana. REVIEW OF SYSTEMS: Otherwise unremarkable, except for Chief Complaint. PHYSICAL EXAMINATION: GENERAL: This is a well developed, 42-year-old gentleman lying supine in bed post cath in no apparent distress without having chest pain. HEENT: Normocephalic. PERRLA. EOMI. NECK: Without bruit, adenopathy or thyromegaly. HEART: Rate is regular without murmur, S3 or S4. LUNGS: Clear. ABDOMEN: Soft, nontender. Bowel sounds are active. RECTAL AND GENITAL: Exams wer e deferred. NEUROLOGICAL: He is grossly intact. Cath report was reviewed with Dr. Simpson. /[id number]/MODL
[2018-02-25] MEDS ORDERED: HEPARIN 10,000 UNIT/10 ML MDV (1,000 UNIT/ML) IVP PRN (15:35)
[2018-02-25 16:08] LABS: PLATELET COUNT 237 10^3/uL (150-400)
[2018-02-25 16:27] LABS: INR 0.95 (0.83-1.16); PROTIME(PATIENT) 12.9 SEC (12.0-15.0)
[2018-02-25 16:47] LABS: CREATINE KINASE 105 IU/L (0-224)
[2018-02-25] MEDS: LORazepam 2 MG/ML INJ IVP PRN ×2 (16:54→23:40)
--- NOTE | 2018-02-25 17:26 | HOSPPROG ---
Hospitalist Progress Note Assessment/Plan: Assessment: 42-year-old male presents with non ST-elevation myocardial infarction Plan: 1. NSTEMI. Present on admission, acute, secondary to critical multivessel coronary disease in left circumflex, LAD, RCA, peak troponin 3.4 -LDL 64, hemoglobin A1c 4.7% -patient currently chest pain-free -continue on aspirin, statin, HUYEN-inhibitor, beta-logan, nitroglycerin if patient experiences chest pain -appreciate cardiothoracic surgery consultation, plan for CABG tomorrow -patient had many questions regarding the time he will need to remain out of work, the duration of cardiac rehab, financially affording cardiac rehab in follow-up -I counseled the patient to the best my ability regarding these issues, but defer the exact time that he will need to remain out of work as well as the specifics regarding cardiac rehab to the primary cardiothoracic surgery service 2. Ascending aortic aneurysm. 4.1 cm on chest imaging, will receive repair during open heart surgery 3. Hypertensive emergency. Most likely provoked by critical coronary disease and non ST-elevation myocardial infarction with systolic blood pressure 250 -status post nitro drip, initiated amlodipine, HUYEN-inhibitor, beta-logan -discussed with Dr. Dany Simpson, he does not recommend overly aggressive lowering of the blood pressure beyond the current range of 120-160, as the patient will be at risk for further cardiac ischemia and/or stroke if lowered to quickly Diet. Cardiac, NPO in a.m. Prophylaxis. Low risk patient, SCDs Code. Full Disposition. Anticipated discharge uncertain this time, anticipated length stay greater than 48 hr for reasonable medical necessity including NSTEMI requiring CABG. Subjective: Denies any chest pain, reports he is uninsured, patient is feeling anxious regarding how he is going to finance his care Objective: Vital Signs Temp Pulse Resp BP Pulse Ox 36.6 C 71 21 H 156/105 H 97 02/25/18 16:00 02/25/18 16:00 02/25/18 16:00 02/25/18 16:00 02/25/18 16:00 Laboratory Results 02/25/18 15:54 02/24/18 02/25/18 02/26/18 05:59 05:59 05:59 Intake Total 1017.2 300 Output Total 1325 Balance -307.8 300 PT 12.9 SEC (12.0-15.0) 02/25/18 15:54 INR 0.95 (0.83-1.16) 02/25/18 15:54 - Time Spent With Patient Time Spent with Patient: greater than 25 minutes Time Spent with Patient: Greater than 25 minutes spent on this patients care, greater than 50% of time spent counseling, educating, and coordinating care regarding the above mentioned plan. - Physical Exam Constitutional: no apparent distress, appears nourished, not in pain Cardiovascular: regular rate and rhythym, no murmur, rub, or gallop, No edema Respiratory: no respiratory distress, no rales or rhonchi, clear to auscultation Gastrointestinal: normoactive bowel sounds, soft, non-tender abdomen, no palpable masses Neurologic: AAOx3 Psychiatric: interacting appropriately, not encephalopathic, thought process linear, anxious ICD10 Worksheet Patient Problems: Problems Problem Status Onset Acute coronary syndrome Acute Hypertension Acute Hypertensive emergency Acute
--- NOTE | 2018-02-25 20:34 | SOAPPROG ---
SOAP Progress Note Assessment/Plan: Assessment: 1. Severe three vessel CAD 2. Ischemic/hypertensive cardiomyopathy 3. Systemic hypertension ( No renal artery stenosis by angiography) 4. Thoracic aneurysm Procedures: Echocardiogram. Left heart cath with abdominal aortagram Impression: Day #1 s/p admission with angina and hypertensive emergency. Cath today revealed occluded LAD, Critical RCA nd moderate to sever OM with reduced LV function. There was no renal artery stenosis. Blood pressure in improved on oral medications. He has had no chest pain. CABG tomorrow Repair of thoracic aorta. Medical therapy. Discussed PCI, though I would favor CABG 02/25/18 20:30 Subjective: No further chest apin. No sob, PND or orthopnea Objective: Vital Signs Temp Pulse Resp BP Pulse Ox 36.9 C 75 18 163/120 H 98 02/25/18 18:00 02/25/18 18:00 02/25/18 18:00 02/25/18 18:00 02/25/18 18:00 Laboratory Results 02/25/18 15:54 02/24/18 02/25/18 02/26/18 05:59 05:59 05:59 Intake Total 1017.2 800 Output Total 1325 Balance -307.8 800 PT 12.9 SEC (12.0-15.0) 02/25/18 15:54 INR 0.95 (0.83-1.16) 02/25/18 15:54 Physical Exam - Physical Exam General Appearance: alert, no apparent distress EENT: PERRL/EOMI Neck: non-tender, full range of motion Respiratory: chest non-tender, lungs clear, normal breath sounds Cardiac/Chest: regular rate, rhythm, gallop, No JVD Peripheral Pulses: 1+: carotid (R), carotid (L), femoral (R), femoral (L), dorsalis-pedis (R), dorsalis-pedis (L) Abdomen: normal bowel sounds, non-tender, soft Back: Normal inspection, No CVA tenderness Skin: normal color, warm/dry, No rash Lymphatic: no adenopathy Extremities: normal range of motion, non-tender, No pedal edema, No calf tenderness Neuro/Psych: no motor/sensory deficits, alert, No facial droop ICD10 Worksheet Patient Problems: Problems Problem Status Onset Acute coronary syndrome Acute Hypertension Acute Hypertensive emergency Acute Review of Systems - Review of Systems Constitutional: no symptoms reported EENTM: no symptoms reported Respiratory: no symptoms reported Cardiac: no symptoms reported Gastrointestinal/Abdominal: no symptoms reported Genitourinary: no symptoms Musculoskelatal: no symptoms Skin: no symptoms Neurological: anxiety Hematologic/Lymphatic: no symptoms reported Immunologic/allergic: no symptoms reported
[2018-02-25] MEDS ORDERED: CHLORHEXIDINE GLUC HIBICLENS 118 ML BTL TP SCH (21:00)
[2018-02-26] MEDS ORDERED: CITRATE DEXTROSE SOLN 500 ML BAG MISC ONE (06:00)
[2018-02-26] MEDS ORDERED: ceFAZolin 2 GM/DEXTROSE 100 ML IV ONE (06:00)
[2018-02-26] MEDS ORDERED: PHENYLEPHRINE HCL 50 MG in NS 250 ML IV ONE (06:00)
[2018-02-26] MEDS ORDERED: NOREPINEPHRINE BITARTRATE 16 MG in NS 250 ML IV ONE (06:00)
[2018-02-26] MEDS ORDERED: SODIUM BICARBONATE 20 MEQ, LIDOCAINE 1% 10 ML in NORMOSOL-R 1,000 ML MISC ONE (06:00)
[2018-02-26] MEDS ORDERED: niCARdipine/NACL 200 ML IV ONE (06:00)
[2018-02-26] MEDS ORDERED: MANNITOL 25% 12.5 GM/50 ML VIAL IVP ONE (06:00)
[2018-02-26] MEDS ORDERED: VERAPAMIL 5 MG, NITROGLYCERIN 2.5 MG, HEPARIN 500 UNIT, SODIUM BICARBONATE 0.2 MEQ in L... MISC ONE (06:00)
[2018-02-26] MEDS ORDERED: AMINOCAPROIC ACID 5 GM/20 ML VIAL IV ONE (06:00)
[2018-02-26] MEDS ORDERED: MUPIROCIN 2% 22 GM OINT NS ONE (06:00)
[2018-02-26] MEDS ORDERED: INSULIN REGULAR HUMAN 100 UNIT in NS 100 ML IV ONE (06:00)
--- NOTE | 2018-02-26 06:24 | PDHPUP ---
History & Physical Update H&P update statement: This history and physical update is based on an assessment of the patient which was completed after admission or registration (within 24 hours), but prior to the surgery/procedure. H&P update: H&P reviewed & patient examined, no change in patient's condition since H&P completed
[2018-02-26] MEDS ORDERED: MILRINONE/DEXTROSE/100 ML BAG IV ONE (06:25)
[2018-02-26] MEDS ORDERED: PROTAMINE SULFATE 50 MG/5 ML VIAL IVP ONE (06:25)
[2018-02-26] MEDS ORDERED: HEPARIN 10,000 UNIT/10 ML MDV (1,000 UNIT/ML) ONE ×2 (06:25→06:27)
[2018-02-26] MEDS ORDERED: CALCIUM CHLORIDE 1 GM/10 ML INJ ONE ×2 (06:25→06:27)
[2018-02-26] MEDS ORDERED: NA BICARBONATE 50 MEQ/50 ML VIAL ONE ×2 (06:25→15:37)
[2018-02-26] MEDS ORDERED: DOPamine/DEXTROSE 400 MG/250 ML BAG IV ONE (06:25)
[2018-02-26] MEDS ORDERED: NITROGLYCERIN/D5W 50 MG/250 ML BOTTLE IV ONE (06:26)
[2018-02-26] MEDS ORDERED: AMIODARONE HCL 150 MG/3 ML VIAL ONE ×2 (06:26→06:27)
[2018-02-26] MEDS ORDERED: ceFAZolin 1 GM VIAL ONE (06:26)
[2018-02-26] MEDS ORDERED: niCARdipine/NACL/200 ML BAG IV ONE (06:26)
[2018-02-26] MEDS ORDERED: ADENOSINE 6 MG/2 ML VIAL ONE (06:26)
[2018-02-26] MEDS ORDERED: CITRATE DEXTROSE SOLN 500 ML BAG ONE (06:27)
[2018-02-26] MEDS ORDERED: LIDOCAINE 2% 100 MG/5 ML SYR ONE (06:27)
[2018-02-26] MEDS ORDERED: ALBUMIN 5% 250 ML BOTTLE IV ONE ×2 (06:27→10:40)
[2018-02-26] MEDS ORDERED: MAGNESIUM SULFATE 1 GM/2 ML VIAL ONE (06:28)
[2018-02-26] MEDS ORDERED: methylPREDNISolone SOD SUCC 1 GM/8 ML VIAL ONE (06:28)
[2018-02-26] MEDS ORDERED: LR 1,000 ML IV ONE (06:41)
--- NOTE | 2018-02-26 06:54 | CPEKG ---
Test Reason : OPEN Blood Pressure : / mmHG Vent. Rate : 072 BPM Atrial Rate : 071 BPM P-R Int : 175 ms QRS Dur : 099 ms QT Int : 415 ms P-R-T Axes : 066 -11 062 degrees QTc Int : 455 ms Sinus rhythm Biatrial enlargement LVH with secondary repolarization abnormality Anterior infarct, old Confirmed by Dave Best ([id number]) on 02/26/2018 6:54:09 AM Referred By: Confirmed By:Dave Best
[2018-02-26] MEDS ORDERED: MIDAZOLAM 2 MG/2 ML VIAL ONE (06:55)
--- NOTE | 2018-02-26 07:03 | PDANEPAE ---
ANE History of Present Illness 42 yo for cabg ef 35% ANE Past Medical History - Cardiovascular History Hx Hypertension: Yes Hx Arrhythmias: Yes Hx Chest Pain: Yes Hx Coronary Artery / Peripheral Vascular Disease: Yes Hx CHF / Valvular Disease: No Hx Palpitations: No - Pulmonary History Hx COPD: No Hx Asthma/Reactive Airway Disease: No Hx Recent Upper Respiratory Infection: No Hx Oxygen in Use at Home: No Hx Sleep Apnea: No Sleep Apnea Screening Result - Last Documented: Negative - Endocrine History Hx Diabetes: No ANE Review of Systems Review of Systems: ANE Patient History - Allergies Allergies/Adverse Reactions: Sulfa (Sulfonamide Antibiotics) Allergy (Verified 02/24/18 15:44) - Home Medications Home medications: home medication list seen and reviewed Home Medications: Aspirin [Aspirin 325 mg (*)] 325 - 650 mg PO DAILY PRN 02/24/18 [Last Taken 11/06 16:00 650mg] Herbals/Supplements -Info Only 1 ea PO DAILY 02/24/18 [Last Taken Unknown] - NPO status NPO Status: no food or drink >8 hours NPO Since - Liquids (Date): 02/26/18 NPO Since - Liquids (Time): 00:00 NPO Since - Solids (Date): 02/26/18 NPO Since - Solids (Time): 00:00 - Smoking Hx Smoking Status: Current every day smoker - Alcohol Use Alcohol Use: Heavy ANE Labs/Vital Signs - Labs Result Diagrams: 02/25/18 15:54 02/24/18 16:00 - Vital Signs Blood Pressure: 183/141 Heart Rate: 83 Respiratory Rate: 18 O2 Sat (%): 98 Height: 5 ft 9 in Weight: 81.7 kg ANE Physical Exam - Airway Neck exam: FROM Mallampati Score: Class 2 - Pulmonary Pulmonary: no respiratory distress - Cardiovascular Cardiovascular: regular rate and rhythym - ASA Status ASA Status: IV ANE Anesthesia Plan Anesthesia Plan: general endotracheal anesthesia Lines/Monitors: arterial line, central line, BONG
[2018-02-26] MEDS ORDERED: MIDAZOLAM 2 MG/2 ML VIAL IVP ONE (07:05)
[2018-02-26] MEDS ORDERED: PAPAVERINE HCL 60 MG/2 ML SDV ONE (07:11)
[2018-02-26] MEDS ORDERED: VERAPAMIL 5 MG/2 ML VIAL ONE (07:11)
[2018-02-26] MEDS ORDERED: REMIFENTANIL HCL 1 MG VIAL ONE ×2 (07:12→09:22)
[2018-02-26] MEDS ORDERED: fentaNYL 250 MCG/5 ML INJ ONE (07:12)
[2018-02-26] MEDS ORDERED: PROPOFOL/EMULSION 500 MG/50 ML BOTTLE IV ONE ×2 (07:13→09:22)
[2018-02-26] MEDS ORDERED: DEXAMETHASONE 4 MG/ML VIAL ONE (07:17)
[2018-02-26] MEDS ORDERED: ROCURONIUM 100 MG/10 ML VIAL ONE (07:17)
[2018-02-26] MEDS ORDERED: ePHEDrine SULFATE 25 MG/5 ML SYR ONE (07:18)
[2018-02-26] MEDS ORDERED: DEXMEDETOMIDINE HCL 400 MCG in NS 100 ML IV SCH (07:30)
--- NOTE | 2018-02-26 07:44 | SOAPPROG ---
MESHA Progress Note Assessment/Plan: Assessment: 1. Severe three vessel CAD 2. Ischemic/hypertensive cardiomyopathy 3. Systemic hypertension ( No renal artery stenosis by angiography) 4. Thoracic aneurysm Procedures: Echocardiogram. Left heart cath with abdominal aortagram 02/26/18 07:41 Impression: Day 2. Uneventful night. A awaiting CABG this morning. Coronary artery bypass grafting Repair of thoracic aorta. Aggressive secondary prevention. 02/25/18 20:30 Impression: Day #1 s/p admission with angina and hypertensive emergency. Cath today revealed occluded LAD, Critical RCA nd moderate to sever OM with reduced LV function. There was no renal artery stenosis. Blood pressure in improved on oral medications. He has had no chest pain. CABG tomorrow Repair of thoracic aorta. Medical therapy. Discussed PCI, though I would favor CABG Subjective: Feeling well. No further chest pain. Cardiac review of systems is negative for chest pain, shortness of breath, PND , orthopnea, palpitations, syncope, near syncope, edema. Objective: Medications Generic Name Dose Route Start Last Admin Trade Name Freq PRN Reason Stop Dose Admin Amlodipine Besylate 5 mg 02/24/18 17:00 02/25/18 08:09 Norvasc PO 08/23/18 16:59 5 mg DAILY REPLACED BY [facility] Aspirin Buffered 81 mg 02/25/18 09:00 02/25/18 08:09 Aspirin Ec PO 08/24/18 08:59 81 mg DAILY NE Atorvastatin Calcium 20 mg 02/24/18 17:00 02/25/18 08:09 Lipitor PO 08/23/18 16:59 20 mg DAILY REPLACED BY [facility] Lisinopril 40 mg 02/24/18 17:00 02/25/18 08:09 Zestril PO 08/23/18 16:59 40 mg DAILY REPLACED BY [facility] Metoprolol Tartrate 50 mg 02/24/18 18:00 02/25/18 23:41 Lopressor PO 02/26/18 12:01 50 mg Q6HRS NE Vital Signs Temp Pulse Resp BP Pulse Ox 36.7 C 83 18 183/141 H 98 02/26/18 06:34 02/26/18 07:04 02/26/18 07:04 02/26/18 07:04 02/26/18 07:04 Laboratory Results 02/25/18 15:54 09/06/18 09/07/18 09/08/18 05:59 05:59 05:59 Intake Total 1017.2 1300 Output Total 1325 Balance -307.8 1300 PT 12.9 SEC (12.0-15.0) 02/25/18 15:54 INR 0.95 (0.83-1.16) 02/25/18 15:54 Physical Exam - Physical Exam General Appearance: alert, no apparent distress Neck: supple Respiratory: lungs clear Cardiac/Chest: regular rate, rhythm, No JVD Abdomen: normal bowel sounds, non-tender Skin: normal color, No rash Lymphatic: no adenopathy ICD10 Worksheet Patient Problems: Problems Problem Status Onset Acute coronary syndrome Acute Hypertension Acute Hypertensive emergency Acute Review of Systems - Review of Systems Constitutional: denies: chills, fever EENTM: no symptoms reported Respiratory: no symptoms reported Cardiac: no symptoms reported Gastrointestinal/Abdominal: no symptoms reported Genitourinary: no symptoms Musculoskelatal: no symptoms Skin: no symptoms Neurological: no symptoms, anxiety
--- NOTE | 2018-02-26 09:34 | ASMTCMCOM ---
CM Note CM Note Notes: Pt went to open heart today w/ Dr. Moran. Naomy met w/ pt yesterday to screen him for Medicaid. Pt is over income and does not qualify. Financial counseling will be meeting w/ pt at some point. CM spoke to Cristel over at cardiac rehab. Cristel reports that she will speak to pt about going to outpatient cardiac rehab. She reports that they have a program where you pay $70 for 10 cardiac rehab visits. Pt will most likely d/c independent when medically stable. CM available for d/c needs. Plan: Independent Date Signed: 02/26/2018 09:33 AM Electronically Signed By:TERESA Crowe
[2018-02-26] MEDS ORDERED: NITROGLYCERIN/DEXTROSE 250 ML IV SCH (10:00)
[2018-02-26] MEDS ORDERED: NITROPRUSSIDE SODIUM 50 MG in D5W 250 ML IV SCH ×2 (11:30→15:30)
[2018-02-26] MEDS ORDERED: NITROPRUSSIDE SODIUM 50 MG in D5W 250 ML IV ONE (11:30)
[2018-02-26] MEDS: amLODIPine BESYLATE 5 MG TAB PO SCH (11:38)
[2018-02-26] MEDS: METOPROLOL TARTRATE 50 MG TAB PO SCH ×2 (11:39→13:11)
[2018-02-26] MEDS: LISINOPRIL 40 MG TAB PO SCH (11:39)
[2018-02-26] MEDS: ATORVASTATIN CALCIUM 20 MG TAB PO SCH (11:39)
[2018-02-26] MEDS: ASPIRIN EC 81 MG TAB PO SCH (11:39)
[2018-02-26] MEDS ORDERED: PROPOFOL 200 MG/20 ML VIAL ONE (12:07)
[2018-02-26] MEDS ORDERED: MAGNESIUM HYDROXIDE 30 ML UDCUP PO PRN (12:18)
[2018-02-26] MEDS ORDERED: ACETAMINOPHEN 650 MG SUPP PR PRN (12:18)
[2018-02-26] MEDS ORDERED: PANTOPRAZOLE SODIUM 40 MG VIAL IVP ONE (12:18)
[2018-02-26] MEDS ORDERED: SODIUM CL NASAL 45 ML BTL EACHNARE PRN (12:18)
[2018-02-26] MEDS ORDERED: CEPACOL LOZENGE PO PRN (12:18)
[2018-02-26] MEDS ORDERED: LACTULOSE 20 GM/30 ML UDCUP PO PRN (12:18)
[2018-02-26] MEDS ORDERED: ACETAMINOPHEN 325 MG TAB PO PRN (12:18)
[2018-02-26] MEDS ORDERED: POLYETHYLENE GLYCOL 3350 17 GM PKT PO PRN (12:18)
[2018-02-26] MEDS ORDERED: ALBUMIN 5% 250 ML IV PRN (12:18)
[2018-02-26] MEDS ORDERED: BISACODYL 10 MG SUPP PR PRN (12:18)
[2018-02-26] MEDS ORDERED: MEPERIDINE 25 MG/0.5 ML AMP IVP PRN (12:18)
[2018-02-26] MEDS ORDERED: METOCLOPRAMIDE 10 MG/2 ML VIAL IVP PRN (12:18)
[2018-02-26] MEDS ORDERED: D50W 25 GM/50 ML SYR IVP PRN (12:18)
[2018-02-26] MEDS ORDERED: INSULIN REGULAR HUMAN 100 UNIT in NS 100 ML IV SCH (12:30)
[2018-02-26] MEDS ORDERED: NS 1,000 ML IV SCH (12:30)
[2018-02-26] MEDS ORDERED: niCARdipine/NACL 200 ML IV SCH (12:30)
--- NOTE | 2018-02-26 13:16 | GOP ---
DATE OF OPERATION: 02/26/2018 SURGEON: Herrera Moran DO CATTLE TRADER: 1. JERSON Carrillo. 2. Bubba Sanders PA-C. ANESTHESIOLOGIST: Avani Bliss MD. PREOPERATIVE DIAGNOSIS: Acute myocardial infarction with post infarction angina, ischemic cardiomyop athy, hypertensive heart disease. POSTOPERATIVE DIAGNOSIS: Acute myocardial infarction with post infarction angina, ischemic cardiomyo juan, hypertensive heart disease. PROCEDURE PERFORMED: 1. Coronary artery bypass grafting x5 with the left internal mammary artery to the LAD, right internal consultant al mammary artery to the right coronary artery, left radial artery to the 1st diagonal sequential 2nd diagonal with the proximal brought off the olivia of the vein graft to the circumflex, and then saphen ous vein graft to the posterior lateral circumflex. 2. Ligate left atrial appendage. 3. Right ventricular muscle biopsy. 4. Endoscopic vein harvest. FINDINGS: The patient presented with likely a completed inferior wall infarction with persistent pos t infarction chest pain and elevated troponin, seen with a diagnostic cath and was found to have an e jection fraction of approximately 25% and severe triple-vessel disease. He was also noted to be extr efren hypertensive with a longstanding history of hypertension with evidence of hypertensive heart di sease on echo. DESCRIPTION OF PROCEDURE: He was brought to the operating room, intubated, and monitoring lines were placed. He was relatively unstable requiring occasional boluses of inotropes in order to maintain h emodynamic stability while both mammaries and the left radial were harvested simultaneously. All con duits were excellent. We spent some time finding adequate vein and were able to harvest a good piece of vein from the left thigh endoscopically. The aorta was slightly enlarged, but not as large as ad vertised, measuring only 3.4 to 3.5 and was thick walled. Therefore, we had anticipated potential re placing it given his hypertension and a history of being followed for aortic enlargement, but based o n our operative findings, felt that it was essentially normal for a man this size. The heart was twi ce normal size, extremely thick walled, and had evidence of an old completed anterior wall infarction involving the whole anterior wall and apex and what looked like a subacute infarction of the inferio r basilar region in the right coronary artery distribution. Please see cath report for details of th e coronaries. He was heparinized, cannulated. Bypass was begun and cardioplegic arrest was obtained with antegrade and retrograde cardioplegia, topical hypothermia, and systemic cooling. Initially, the left atrial appendage was triply ligated with Endo loops and the tip was excised to co nfirm no communication with the left atrium. We then proceeded with grafting the main right coronary artery after the takeoff of the marginal branch, it was thick walled but a 2.5 mm vessel. The SHELDON was an excellent quality vessel and it was tacked to the epicardium. We then proceeded with grafting the posterior lateral circumflex with a good quality vein. This was a 2.5 mm good quality distal ta rget. The proximal anastomosis was completed to the ascending aorta with a cross-clamp on. We then sequentialed the 2 branches of the diagonal with a 3.5 to 3.7 mm radial artery harvested by SUSI White, who first assisted throughout the procedure as well. This sequential anastomosis to both branch es which measured 2.3 to 2.4 mm was then brought off the olivia of the vein graft to the circumflex wit h a continuous running 6-0 Prolene. Rewarming had been begun while the mammary was grafted to the mi d LAD. Both were sizable and good quality. This was tacked to the epicardium. We then took a wedge resection of a midportion of the right ventricle, thinned down. It should be noted that the entire left heart was extremely thick. There were some thickening and whitish discoloration to the anterior wall. We wanted to rule out any sort of infiltrative process causing part of his cardiomyopathy, de spite hypertension and multiple prior infarcts. This was closed with a pledgeted 4-0 Prolene without difficulty. The cross-clamp was then removed with suction on the ascending aortic vents. Spontaneo us cardiac activity was noted to resume. The patient was rewarmed, weaned from bypass. Heparin was reversed with protamine. The cannula was removed and oversewn. Transesophageal echo confirmed persi stent ejection fraction of approximately 20% to 25%, unchanged from preop. Thymic fat and pericardiu m were closed. The mammaries were brought through large lateral pericardial incisions. The sternum was closed in standard fashion. Patient was returned to ICU in stable condition. /[id number]/MODL
[2018-02-26] MEDS: POTASSIUM Cl (KCl) 50 ML IV PRN ×2 (13:21→13:49)
--- NOTE | 2018-02-26 14:18 | CPEKG ---
Test Reason : OPEN Blood Pressure : / mmHG Vent. Rate : 077 BPM Atrial Rate : 077 BPM P-R Int : 197 ms QRS Dur : 106 ms QT Int : 480 ms P-R-T Axes : 093 160 004 degrees QTc Int : 544 ms Sinus rhythm Right atrial enlargement Anterior infarct, old Prolonged QT interval Confirmed by Dave Best ([id number]) on 02/26/2018 2:18:24 PM Referred By: Confirmed By:Dave Best
[2018-02-26] MEDS: ceFAZolin 2 GM/DEXTROSE 100 ML IV SCH ×2 (14:44→21:54)
[2018-02-26] MEDS ORDERED: SODIUM BICARBONATE 50 MEQ/50 ML SYR IVP ONE (16:00)
[2018-02-26] MEDS ORDERED: NALOXONE HCL 0.4 MG/ML INJ IVP PRN (19:22)
[2018-02-26] MEDS: CHLORHEXIDINE GLUCONATE 15 ML UDL PO SCH (19:41)
[2018-02-26] MEDS: SENNOSIDES/DOCUSATE SODIUM TAB PO SCH ×2 (20:02→22:37)
[2018-02-26] MEDS: MUPIROCIN 2% 22 GM OINT NS SCH (20:04)
[2018-02-26] MEDS: FAMOTIDINE 20 MG/NACL 50 ML IV SCH (20:07)
[2018-02-26] MEDS: fentaNYL 100 MCG/2 ML INJ IVP PRN (20:34)
[2018-02-26] MEDS: HYDROmorphONE/DILAUDID 6 MG/30 ML PCA IV PRN (21:06)
[2018-02-26] MEDS: HYDROCODONE/APAP 5/325 TAB PO PRN (22:37)
[2018-02-26] MEDS ORDERED: FUROSEMIDE 20 MG/2 ML VIAL IV ONE (23:30)
[2018-02-27] MEDS: HYDROCODONE/APAP 5/325 TAB PO PRN ×3 (04:08→16:15)
[2018-02-27 04:13] LABS: PLATELET COUNT 194 10^3/uL (150-400)
[2018-02-27] MEDS: HYDROmorphONE/DILAUDID 6 MG/30 ML PCA IV PRN ×2 (05:56→20:57)
[2018-02-27] MEDS: ceFAZolin 2 GM/DEXTROSE 100 ML IV SCH ×3 (05:57→21:48)
[2018-02-27] MEDS: HEPARIN 5,000 UNIT/0.5 ML INJ SC SCH ×3 (05:59→21:47)
--- NOTE | 2018-02-27 07:45 | SOAPPROG ---
SOAP Progress Note Assessment/Plan: POD #1: CABGx5 (BRUNER-LAD, SHELDON-RCA, LRA sequential D1/D2, SVG-PL circ), ligation left atrial appendage, RV muscle bx, EVH left thigh, vein exploration BLE & left thigh Acute ND/severe 3VD sp CABGx3 - CTS to bulb suction, FC out, AL to remain until dopamine weaned off - BB/ASA/statin when appropriate - Transition nitroglycerin to CCB for RA antispasm x3 months Acute blood loss anemia - Stable without the need for transfusions Ischemic cardiomyopathy, EF 25% - Wean dopamine as tolerated - HF meds when appropriate Long-standing HTN with LVH s/p RV bx - Anti-hypertensive meds when appropriate - RV tissue bx sent to pathology to r/o other myocardial etiologies DVT prophlyaxis - SCDs/heparin SQ Subjective: Pain well-controlled. Denies SOB. Objective: Vital Signs Temp Pulse Resp BP Pulse Ox 36.6 C 100 22 H 98/55 L 87 L 02/27/18 04:00 02/27/18 06:00 02/27/18 06:00 02/27/18 06:00 02/27/18 06:00 Laboratory Results 02/27/18 04:01 02/27/18 04:01 02/26/18 02/27/18 02/28/18 05:59 05:59 05:59 Intake Total 1300 2698 Output Total 3615 Balance 1300 -917 PT 12.9 SEC (12.0-15.0) 02/25/18 15:54 INR 0.95 (0.83-1.16) 02/25/18 15:54 Physical Exam - Physical Exam General Appearance: WD/WN, alert, no apparent distress EENT: No scleral icterus (R), No scleral icterus (L) Neck: normal inspection Respiratory: No respiratory distress Cardiac/Chest: regular rate, rhythm Abdomen: non-tender, soft, No distended Skin: normal color, warm/dry Extremities: No pedal edema Neuro/Psych: no motor/sensory deficits, alert, normal mood/affect, oriented x 3 ICD10 Worksheet Patient Problems: Problems Problem Status Onset Acute blood loss anemia Acute Acute coronary syndrome Acute Hypertension Acute Hypertensive emergency Acute S/P CABG x 5 Acute
--- NOTE | 2018-02-27 07:50 | SOAPPROG ---
SOAP Progress Note Assessment/Plan: Assessment: Plan: Objective: Vital Signs Temp Pulse Resp BP Pulse Ox 36.6 C 100 22 H 98/55 L 87 L 02/27/18 04:00 02/27/18 06:00 02/27/18 06:00 02/27/18 06:00 02/27/18 06:00 Laboratory Results 02/27/18 04:01 02/27/18 04:01 02/26/18 02/27/18 02/28/18 05:59 05:59 05:59 Intake Total 1300 2698 Output Total 3615 Balance 1300 -917 PT 12.9 SEC (12.0-15.0) 02/25/18 15:54 INR 0.95 (0.83-1.16) 02/25/18 15:54 ICD10 Worksheet Patient Problems: Problems Problem Status Onset Acute blood loss anemia Acute Acute coronary syndrome Acute Hypertension Acute Hypertensive emergency Acute S/P CABG x 5 Acute
[2018-02-27] MEDS: SENNOSIDES/DOCUSATE SODIUM TAB PO SCH ×2 (09:11→20:59)
[2018-02-27] MEDS: ASPIRIN EC 81 MG TAB PO SCH (09:11)
[2018-02-27] MEDS: CHLORHEXIDINE GLUCONATE 15 ML UDL PO SCH ×2 (09:11→20:58)
[2018-02-27] MEDS: FAMOTIDINE 20 MG/NACL 50 ML IV SCH ×2 (09:11→20:56)
[2018-02-27] MEDS: PANTOPRAZOLE SODIUM 40 MG TAB PO SCH (09:11)
[2018-02-27] MEDS: MUPIROCIN 2% 22 GM OINT NS SCH ×2 (09:12→21:03)
[2018-02-27] MEDS ORDERED: IOPAMIDOL (ISOVUE 370) 100 ML BTL IV ONE (10:07)
[2018-02-27] MEDS: amLODIPine BESYLATE 5 MG TAB PO SCH (11:00)
--- NOTE | 2018-02-27 11:38 | GCON ---
CRITICAL CARE CONSULTATION HISTORY OF PRESENT ILLNESS: This patient is a 42-year-old male, with a history of chronic untreated hypertension, as well as cocaine, alcohol, and tobacco, who was admitted several days ago, I believe on the , with chest pain that resolved after he arrived. He was thought to have probable coronary artery disease and underwent cardiac catheterization showing multivessel disease, and yesterday unde rwent CABG x5, with left atrial appendage ligation. He was slow to recover, but was eventually extub ated in the intensive care unit after several hours of direct observation. Overnight, there were no other issues. This morning, he complained of difficulty with vision, but was fairly unclear, and lat er said that he had darkened vision, but was able to make out shapes and count fingers, so no visual field defects. Of note, his blood pressure at this time on the cuff was 115/80. He had no other foc al defects, though he did complain of some distal paresthesias. REVIEW OF SYSTEMS: Otherwise negative. PAST MEDICAL HISTORY: 1. Hypertension as described above. 2. Substance abuse. PAST SURGICAL HISTORY: 1. CABG as described. 2. Remote appendectomy. MEDICATIONS: At this time, they include: 1. Tylenol. 2. [place]. 3. Aspirin. 4. Lipitor. 5. Dulcolax. 6. Ancef. 7. Precedex. 8. Dopamine. 9. Pepcid. 10. Fentanyl. 11. Heparin. 12. Insulin. 13. Lisinopril. 14. Magnesium. 15. Reglan. 16. Morphine. 17. Narcan. 18. Zofran. 19. Protonix. 20. MiraLAX. 21. Senokot. 22. Normal saline. 23. He was on a nitroglycerin drip earlier. PHYSICAL EXAMINATION: VITAL SIGNS: He had a blood pressure at 0700 hours this morning at 95/62, hea rt rate of 94 and sinus rhythm, respirations 15, oxygen saturation 92% on 6L. GENERAL: He was mildl y somnolent, though he became more conversive on my 2nd visit this morning, with no obvious focal def ects. He complained of incisional chest pain, but no headache specifically. HEENT: His pupils were equally round and reactive to light. Nonicteric and noninjected. Mucous membranes moist, without e rythema or exudate. NECK: Supple, without adenopathy or jugular vein distention. PULMONARY: Breat h sounds were clear to auscultation bilaterally, without wheezes, rubs, or rales. SKIN: Chest incis ion looked clean and dry, without evidence of infection or nonunion. ABDOMEN: Soft, nontender, nond istended, without hepatosplenomegaly. EXTREMITIES: No clubbing, cyanosis, or edema. NEUROLOGICAL: Nonfocal, including cranial nerves and deep tendon reflexes. OBJECTIVE DATA: White count 19.5, hematocrit 34, platelets 194,000. Basic metabolic panel was unrem arkable. Calcium was 7.5. ASSESSMENT AND PLAN: 1. Visual difficulty, which may be related to relative hypotension compared to his baseline. I disc ussed the case with Dr. Moran in some detail. His nitroglycerin drip was discontinued. He is gettin g a head CT at the time of this dictation. Neurology is also involved. Less likely possibilities wo uld be a focal stroke, seizures, or infection. 2. Hypertension. Because of longstanding blood pressure issues, we should probably target a systoli c pressure closer to 150-160, and potentially even higher, given his severe hypertension that he pres ented with. 3. Polysubstance abuse, including cocaine and alcohol. He has had no episodes of withdrawal in the past, but we will have to watch closely for this particular issue. 4. Hypoxemia. He was slow to get off the ventilator last night. I think this was probably related to Precedex and hypoventilation, and he was successfully extubated and has some minor oxygen requirem ent now. His chest x-ray is unremarkable. He should continue with normal pulmonary toilet. TIME SPENT: A total of about 35 minutes of critical care time, including 2 visits to the bedside and review of his data, was required for this visit today. /[id number]/MODL
[2018-02-27] MEDS ORDERED: ALBUMIN 5% 500 ML BOTTLE IV ONE (12:09)
--- NOTE | 2018-02-27 12:28 | GCON ---
STAT NEUROLOGY CONSULT. DATE OF CONSULTATION: 02/27/2018 REFERRING PHYSICIAN: Herrera Moran DO BILLING CODE: critical care 1st hour - for emergent neurologic evaluation for possible stroke, TIA or large vessel occlusion. HISTORY OF PRESENT ILLNESS: Mr. Collier is a very pleasant 42-year-old gentleman who unfortunately has advanced cardiac disease and high blood pressure. The patient, indeed, is postop day 1 from a 5-vessel bypass. Please see Dr. Moran's service notes for details. He has long-standing hypertension and ischemic cardiomyopathy with an ejection fraction of 25%. Despite this, the patient presented with cardiac symptoms with blood pressures up to 225/153. Postoperatively now, his blood pressure is 90s over 60s to 50s. In the setting of this surgery and blood pressure change, he is reported dimming of vision without focal sensory, motor, motor speech, cognitive, or language symptoms. It is a diffuse dimming of ambient light without focality in what he describes. Because of this, I was consult by [facility] and we ordered stat CT of the head without contrast and CT of the head and neck. I evaluated the patient as soon as he arrived back from Radiology and confirmed there was no focal cranial nerve or motor or sensory findings in his limbs. His head CT without contrast shows normal brain without acute hemorrhage , mass, or evidence of ischemia. His CTA of the head shows normal intracranial arterial circulation without evidence of embolic disease or aneurysm. Patent venous system was also noted. The CTA of the neck with contrast showed widely patent carotid and vertebral arteries. No evidence of acute occlusion or dissection. He had some minimal noncalcified plaque in the left common carotid artery and right carotid bulb, less than 10% stenosis bilaterally. PHYSICAL EXAM: VITAL SIGNS: Blood pressure is 90s over 50s. GENERAL: Patient is awake and alert and intermittently in pain from his recent surgery. HIGHER MENTAL FUNCTION: Again, he is completely alert and has no aphasia or dysarthria. HEENT: Face is symmetric. Extraocular movements are full. Pupils are symmetric and react normally bilaterally. Tongue is midline. On general vision exam. He describes a general dimness to his vision without left - or right-sided asymmetry. He could tell that the general outlined in my head and that I was bald, but could not describe me further, for example, because the ambient light seemed to dim for him to described me. Otherwise, no other cranial nerve exam findings. The visual field to confrontation was symmetric. NEURO: Motor and sensory exam in the limbs were normal. IMPRESSION AND PLAN: 1. Coronary artery disease. 2. Postoperative day 1 from coronary artery bypass grafting. 3. Long-standing hypertension and ischemic cardiomyopathy. 4. Probable cerebral hypoperfusion. Overall, his visual disturbance symptoms are likely due to global cerebral hyperperfusion from the changes in blood pressure. He certainly may have been living at much higher systolics at baseline and may be having trouble with cerebral autoregulation with low-normal blood pressure. Fortunately, there is no evidence of large-vessel occlusion at this time based on the CTA of the head and neck. In addition, there is no evidence of early stroke or hemorrhage on noncontrast CT of the head. The patient was counseled at length. Based on the presumption that this is global cerebral hypoperfusion symptomatology, I have recommended we slowly allow his blood pressure to rise to systolics of 150s to 160s and reassess his symptoms at that point. I have communicated this directly to Dr. Moran, who has agreed to take care of executing the plan in terms of blood pressure management from here. I have also communicated with the ICU team. No further recommendations now. We will continue to follow the patient as needed. Please do not hesitate to call the neurology service if there are any questions or changes in neurologic status with this very pleasant patient. One hour in critical care time was spent today in emergent evaluation and diagnostics including consideration for any advanced treatments that could be needed based on test findings for stabilization and preservation of cerebral function. /[id number]/MODL MTDD
[2018-02-27] MEDS ORDERED: NOREPINEPHRINE BITARTRATE 16 MG in NS 250 ML IV SCH (12:30)
[2018-02-27] MEDS ORDERED: ALBUMIN 5% 500 ML IV ONE (12:30)
[2018-02-27] MEDS: fentaNYL 100 MCG/2 ML INJ IVP PRN ×5 (12:47→19:32)
--- NOTE | 2018-02-27 13:27 | POSTANESTH ---
Post Anesthetic Evaluation Cardiovascular Status: Normal, Stable Respiratory Status: Tx Decrease in SpO2 Level of Consciousness/Mental Status: Can Participate in Eval Pain Control: Adequate, Prn Tx Ordered Nausea/Vomiting Control: Adequate, Prn Tx Ordered Complications Possibly Related to Anesthesia: None Noted
[2018-02-27] MEDS: ONDANSETRON 4 MG/2 ML VIAL IVP PRN (22:31)
[2018-02-28] MEDS: HYDROCODONE/APAP 5/325 TAB PO PRN ×2 (01:13→07:37)
[2018-02-28] MEDS: HEPARIN 5,000 UNIT/0.5 ML INJ SC SCH ×3 (06:08→22:56)
--- NOTE | 2018-02-28 07:35 | SOAPPROG ---
SOAP Progress Note Assessment/Plan: POD #2: CABGx5 (BRUNER-LAD, SHELDON-RCA, LRA sequential D1/D2, SVG-PL circ), ligation left atrial appendage, RV muscle bx, EVH right thigh, vein exploration BLE & left thigh Acute [place]/severe 3VD sp CABGx3 - AL to remain until dopamine/Levophed weaned off - BB/ASA/statin when appropriate - CCB for RA graft antispasm x3 months Acute blood loss anemia - Stable without the need for transfusions Acute vision disturbances secondary to hypoperfusion - Resolution with higher perfusion pressures - All imaging negative for acute CVA Ischemic cardiomyopathy, EF 25% - Wean dopamine as tolerated - HF meds when appropriate Long-standing HTN with LVH s/p RV bx - RV tissue bx sent to pathology to r/o other myocardial etiologies - Permissive hypertension, anti-hypertensive meds when appropriate DVT prophlyaxis - SCDs/heparin SQ Subjective: Vision has returned. Pain where chest tubes are. Denies SOB. Left hand with full motion, no numbness. Objective: Vital Signs Temp Pulse Resp BP Pulse Ox 36.5 C 109 H 13 185/107 H 93 02/28/18 04:00 02/28/18 06:44 02/28/18 06:00 02/28/18 06:44 02/28/18 06:00 Laboratory Results 02/28/18 06:00 02/28/18 06:00 02/27/18 02/28/18 03/01/18 05:59 05:59 05:59 Intake Total 2698 2804 Output Total 3615 1990 Balance -917 814 PT 12.9 SEC (12.0-15.0) 02/25/18 15:54 INR 0.95 (0.83-1.16) 02/25/18 15:54 Physical Exam - Physical Exam General Appearance: WD/WN, alert, no apparent distress EENT: No scleral icterus (R), No scleral icterus (L) Neck: normal inspection Respiratory: No respiratory distress Cardiac/Chest: tachycardia Abdomen: non-tender, soft, No distended Skin: normal color, warm/dry Extremities: other (left hand with full strength/sensation), No pedal edema Neuro/Psych: no motor/sensory deficits, alert, normal mood/affect, oriented x 3 ICD10 Worksheet Patient Problems: Problems Problem Status Onset Acute blood loss anemia Acute Acute coronary syndrome Acute Chest pain Acute Hypertension Acute Hypertensive emergency Acute S/P CABG x 5 Acute
[2018-02-28] MEDS: SENNOSIDES/DOCUSATE SODIUM TAB PO SCH ×2 (08:34→19:31)
[2018-02-28] MEDS: PANTOPRAZOLE SODIUM 40 MG TAB PO SCH (08:34)
[2018-02-28] MEDS: amLODIPine BESYLATE 5 MG TAB PO SCH (08:34)
[2018-02-28] MEDS: ASPIRIN EC 81 MG TAB PO SCH (08:34)
[2018-02-28] MEDS: MUPIROCIN 2% 22 GM OINT NS SCH (08:35)
[2018-02-28] MEDS: HYDROmorphONE/DILAUDID 6 MG/30 ML PCA IV PRN (10:23)
--- NOTE | 2018-02-28 12:52 | PDINTPN ---
Emergency Medical Technician Basic Progress Note Assessment/Plan: 42 M with history of cocaine and etoh in addition to poorly controlled HTN presented with CP and NSTEMI, underwent CABG with extubation in ICU after slow recovery. On routine followup on POD#2, her complained of darkened vision with UE paresthesias with a normal BP. Symptoms resolved with an increase in BP. * NSTEMI- s/p CABG and recovering well. Weaning off DA today and likely NE tomorrow per Dr. Moran. * Visual changes likely the result of reset autoregulatory curve 2/2 chronic and poorly treated HTN. His admission BP was 250/150, so target of 160/110 is probably reasonable for now with gradual improvement in BP control over days/ weeks. * Hypoxia- rap[idly transitiojned from vent to NC and now RA. Continue pulmonary toilet. * ETOH- no current signs of wd. Pleasant and cooperative Subjective: much improved today with anabaptist of baseline vision and resolution of paresthesias Objective: Vital Signs Temp Pulse Resp BP Pulse Ox 36.9 C 111 H 20 138/84 H 95 02/28/18 08:00 02/28/18 11:00 02/28/18 11:00 02/28/18 11:00 02/28/18 11:00 Laboratory Results 02/28/18 06:00 02/28/18 06:00 02/27/18 02/28/18 03/01/18 05:59 05:59 05:59 Intake Total 2698 2804 450 Output Total 3615 1990 275 Balance -917 814 175 PT 12.9 SEC (12.0-15.0) 02/25/18 15:54 INR 0.95 (0.83-1.16) 02/25/18 15:54 Physical Exam - Physical Exam General Appearance: WD/WN, alert, no apparent distress EENT: PERRL/EOMI Neck: supple Respiratory: lungs clear, normal breath sounds, No respiratory distress, No accessory muscle use Cardiac/Chest: regular rate, rhythm, No edema Abdomen: non-tender, soft, No distended Skin: normal color, warm/dry, No cyanosis Lymphatic: no adenopathy Extremities: No pedal edema Neuro/Psych: alert, normal mood/affect, oriented x 3 ICD10 Worksheet Patient Problems: Problems Problem Status Onset Acute blood loss anemia Acute Acute coronary syndrome Acute Chest pain Acute Hypertension Acute Hypertensive emergency Acute S/P CABG x 5 Acute
--- NOTE | 2018-02-28 12:55 | NEUROPROG ---
Assessment: 1. Status post CABG 2. Visual disturbance, resolved The patient's nonspecific, bilateral visual dimming symptoms apparently almost immediately resolved after increasing blood pressure. This supports that this was a global hypoperfusion symptom in tandem with the negative angiography studies. His mean arterial pressures are now 100 and he is doing very well without symptoms. No focal findings on exam. No further recommendations. We will sign off and follow up p.r.n. Please do not hesitate to call the neurology service if there are any questions or changes in neurologic status with this very pleasant patient. Subjective: Vision symptoms resolved with increased blood pressure Objective: Vital Signs Temp Pulse Resp BP Pulse Ox 36.9 C 111 H 20 138/84 H 95 02/28/18 08:00 02/28/18 11:00 02/28/18 11:00 02/28/18 11:00 02/28/18 11:00 Laboratory Results 02/28/18 06:00 02/28/18 06:00 02/27/18 02/28/18 03/01/18 05:59 05:59 05:59 Intake Total 2698 2804 450 Output Total 3615 1990 275 Balance -917 814 175 PT 12.9 SEC (12.0-15.0) 02/25/18 15:54 INR 0.95 (0.83-1.16) 02/25/18 15:54 Awake and alert Face is symmetric He denies any subjective vision symptoms now No myoclonus No aphasia Allergies/Adverse Reactions: Sulfa (Sulfonamide Antibiotics) Allergy (Verified 02/24/18 15:44)
[2018-02-28] MEDS: OXYCODONE/APAP 5/325 TAB PO PRN ×3 (13:47→19:31)
[2018-02-28] MEDS: traMADol 50 MG TAB PO PRN (22:55)
[2018-03-01] MEDS: OXYCODONE/APAP 5/325 TAB PO PRN ×3 (02:02→21:27)
[2018-03-01] MEDS: HEPARIN 5,000 UNIT/0.5 ML INJ SC SCH ×3 (05:28→21:29)
[2018-03-01] MEDS: traMADol 50 MG TAB PO PRN ×2 (05:28→13:09)
--- NOTE | 2018-03-01 07:27 | SOAPPROG ---
SOAP Progress Note Assessment/Plan: Assessment: POD#3 CABGx5 (BRUNER-LAD, SHELDON-RCA, LRA sequential D1/D2, SVG-PLC), ligation left atrial appendage, RV muscle bx, EVH right thigh, vein exploration BLE & left thigh Acute [place]/severe 3VD sp CABGx3 - BB/ASA/statin when appropriate. ACEI if sufficient BP. - CCB for RA graft antispasm x3 months Acute expected blood loss anemia - Stable without the need for transfusions - VTE prophylaxis with SQ hep/SCDs Acute postop vision disturbances - Hypoperfusion secondary to tight BP control suspected. All imaging negative for acute CVA - Resolution with higher MAPs Ischemic cardiomyopathy, EF 25% - Low dose pressor support to optimize MAPs - Staggered intro of HF meds when appropriate Long-standing HTN with LVH s/p RV bx - RV tissue bx sent to pathology to r/o other myocardial etiologies - Permissive hypertension, anti-hypertensive meds when appropriate Plan: Stop levo. D/C kenny. Colloid (PRBC) prn CVP < 10. IV lasix prn CVP > 14. Norvasc 2.5 mg daily. Remove Vwires. Remove ant mediastinal and rt pleural tubes. Tx to PCU. 03/01/18 07:26 Subjective: Doing ok. Improving ambulatory capacity. No recurrent paresthesias or visual disturbance. Satisfactory analgesia. Objective: Vital Signs Temp Pulse Resp BP Pulse Ox 37.2 C 89 12 122/76 H 96 03/01/18 04:00 03/01/18 06:00 03/01/18 06:00 03/01/18 06:00 03/01/18 06:00 Laboratory Results 03/01/18 05:30 03/01/18 05:30 02/28/18 03/01/18 03/02/18 05:59 05:59 05:59 Intake Total 2804 2411.1 Output Total 1989 1160 Balance 814 1251.1 PT 12.9 SEC (12.0-15.0) 02/25/18 15:54 INR 0.95 (0.83-1.16) 02/25/18 15:54 Levo @ 2 mcg for MAPs > 85 Holding SR Min suppl O2 req Positive fluid balance. +4.4 kg overall. CTOP approaching removal criteria. Labs ok. Physical Exam - Physical Exam General Appearance: alert, no apparent distress Respiratory: crackles (scattered basilar), other (Blakes x 3 to bulb suction, thin serosang drainage) Cardiac/Chest: regular rate, rhythm, other (Sternotomy CDI. Vwires intact.) Abdomen: non-tender, soft Skin: warm/dry Extremities: swelling (1+ gen), other (LRA CDI. CSM intact. Bilat ankle and thigh venots CDI) ICD10 Worksheet Patient Problems: Problems Problem Status Onset Acute blood loss anemia Acute Acute coronary syndrome Acute Chest pain Acute Hypertension Acute Hypertensive emergency Acute S/P CABG x 5 Acute
[2018-03-01] MEDS ORDERED: FUROSEMIDE 40 MG/4 ML VIAL IVP ONE (07:50)
[2018-03-01] MEDS: ONDANSETRON 4 MG/2 ML VIAL IVP PRN (08:22)
[2018-03-01] MEDS: PANTOPRAZOLE SODIUM 40 MG TAB PO SCH (08:26)
[2018-03-01] MEDS: amLODIPine BESYLATE 5 MG TAB PO SCH (09:13)
[2018-03-01] MEDS: SENNOSIDES/DOCUSATE SODIUM TAB PO SCH ×2 (09:13→21:29)
[2018-03-01] MEDS: ASPIRIN EC 81 MG TAB PO SCH (09:14)
[2018-03-01] MEDS: ATORVASTATIN CALCIUM 20 MG TAB PO SCH (09:17)
[2018-03-01] MEDS ORDERED: PNEUMOCOCCAL 0.5ML VACCINE VIAL IM ONE (11:14)
--- NOTE | 2018-03-01 12:09 | ASMTCMCOM ---
CM Note CM Note Notes: POD#3 of CABG x 5. Patient to transfer to PCU today. Patient lives with his . OT recommending HC, PT=HM. May not have needs at time of discharge. Over income for Medicaid. Date Signed: 03/01/2018 12:07 PM Electronically Signed By:Shannan Lopez LCSW
[2018-03-01] MEDS: CARVEDILOL 3.125 MG TAB PO SCH (18:29)
[2018-03-02] MEDS: traMADol 50 MG TAB PO PRN ×2 (00:50→20:31)
[2018-03-02] MEDS: OXYCODONE/APAP 5/325 TAB PO PRN ×4 (03:36→18:39)
[2018-03-02 04:21] LABS: PLATELET COUNT 144 10^3/uL (150-400)
[2018-03-02] MEDS: HEPARIN 5,000 UNIT/0.5 ML INJ SC SCH ×3 (06:03→21:02)
[2018-03-02] MEDS: HYDROmorphONE/DILAUDID 2 MG TAB PO PRN ×3 (06:03→21:02)
--- NOTE | 2018-03-02 07:25 | SOAPPROG ---
SOAP Progress Note Assessment/Plan: Assessment: POD#4 CABGx5 (BRUNER-LAD, SHELDON-RCA, LRA sequential D1/D2, SVG-PLC), ligation left atrial appendage, RV muscle bx, EVH right thigh, vein exploration BLE & left thigh Acute NH/severe 3VD sp CABGx3 - BB/ASA/statin when appropriate. ACEI if sufficient BP. - CCB for RA graft antispasm x3 months - TCPWs and 2 of 3 chest tubes out. Acute expected blood loss anemia - Stable without the need for transfusions - VTE prophylaxis with SQ hep/SCDs Acute postop vision disturbances - Hypoperfusion secondary to tight BP control suspected. All imaging negative for acute CVA - Resolution with higher MAPs Ischemic cardiomyopathy, EF 25% - Optimized MAPs early postop w low dose pressor support - Active diuresis in progress. Staggered intro of other HF meds when appropriate Long-standing HTN with LVH s/p RV bx - RV tissue bx sent to pathology to r/o other myocardial etiologies - Permissive hypertension, anti-hypertensive meds when appropriate Plan: Left pleural tube removed. Cont Norvasc 2.5 mg daily. Switch to oral lasix. Start coreg 3.125 mg BID with ultraconservative hold parameters. Cont inc activity as tolerated. Dispo - Anticipate home without services in 2-3 days. 03/02/18 07:22 Subjective: Tube pain, o/w doing ok. +BM. Objective: Vital Signs Temp Pulse Resp BP Pulse Ox 36.9 C 88 16 110/73 98 03/02/18 07:22 03/02/18 07:22 03/02/18 07:22 03/02/18 07:22 03/02/18 07:22 Laboratory Results 03/02/18 04:00 03/02/18 04:00 03/01/18 03/02/18 03/03/18 05:59 05:59 05:59 Intake Total 2411.1 1117.3 Output Total 1160 1350 40 Balance 1251.1 -232.7 -40 PT 12.9 SEC (12.0-15.0) 02/25/18 15:54 INR 0.95 (0.83-1.16) 02/25/18 15:54 Holding SR and MAPs > 75. Borderline suppl O2 req. Adequate fluid balance. Renal fx normalizing. Physical Exam - Physical Exam General Appearance: alert, no apparent distress Respiratory: decreased breath sounds (bases), other (joselin tube to bulb suction , mostly serous drainage; tube removed without incident) Cardiac/Chest: regular rate, rhythm, other (Sternotomy CDI) Abdomen: non-tender, soft Skin: warm/dry Extremities: swelling (trace), other (LRA and bilat LE venots CDI) ICD10 Worksheet Patient Problems: Problems Problem Status Onset Acute blood loss anemia Acute Acute coronary syndrome Acute Chest pain Acute Hypertension Acute Hypertensive emergency Acute S/P CABG x 5 Acute
[2018-03-02] MEDS: PANTOPRAZOLE SODIUM 40 MG TAB PO SCH (08:45)
[2018-03-02] MEDS: ATORVASTATIN CALCIUM 20 MG TAB PO SCH (08:46)
[2018-03-02] MEDS: amLODIPine BESYLATE 5 MG TAB PO SCH (08:46)
[2018-03-02] MEDS: ASPIRIN EC 81 MG TAB PO SCH (08:47)
[2018-03-02] MEDS ORDERED: FUROSEMIDE 40 MG TAB PO ONE (09:00)
[2018-03-02] MEDS ORDERED: POTASSIUM CL 20 MEQ TAB PO ONE ×2 (09:00→12:00)
[2018-03-02] MEDS: CARVEDILOL 3.125 MG TAB PO SCH ×2 (09:41→18:35)
[2018-03-02] MEDS: ONDANSETRON DISINTEGRATING 4 MG TAB PO PRN (20:33)
[2018-03-03] MEDS: HYDROmorphONE/DILAUDID 2 MG TAB PO PRN (01:13)
[2018-03-03] MEDS: traMADol 50 MG TAB PO PRN ×4 (02:23→22:59)
[2018-03-03] MEDS: OXYCODONE/APAP 5/325 TAB PO PRN ×3 (05:55→20:22)
[2018-03-03] MEDS: HEPARIN 5,000 UNIT/0.5 ML INJ SC SCH ×3 (05:56→21:12)
--- NOTE | 2018-03-03 06:47 | SOAPPROG ---
SOAP Progress Note Assessment/Plan: Assessment: POD#5 CABGx5 (BRUNER-LAD, SHELDON-RCA, LRA sequential D1/D2, SVG-PLC), ligation left atrial appendage, RV muscle bx, EVH right thigh, vein exploration BLE & left thigh Acute [place]/severe 3VD sp CABGx3 - BB/ASA/statin when appropriate. ACEI if sufficient BP. - CCB for RA graft antispasm x3 months - TCPWs and chest tubes out. Acute expected blood loss anemia - Stable without the need for transfusions - VTE prophylaxis with SQ hep/SCDs Acute postop vision disturbances - Hypoperfusion secondary to tight BP control suspected. All imaging negative for acute CVA - Resolution with higher MAPs/permissive HTN Ischemic cardiomyopathy, EF 25% - Optimized MAPs early postop w low dose pressor support - Active diuresis in progress - Staggered intro of other HF meds as tolerated Long-standing HTN with LVH s/p RV bx - No convincing infiltrative process by path Plan: Increase Coreg to 6.25 mg BID. Cont lasix 40 mg daily. Cont Norvasc 2.5 mg daily. Cont inc activity as tolerated. Wean O2. Dispo - Anticipate home without services in 1-2 days. 03/03/18 06:42 Subjective: Hanging in there. No acute concerns. Hopeful for home soon. Objective: Vital Signs Temp Pulse Resp BP Pulse Ox 36.9 C 96 16 141/91 H 99 03/03/18 05:00 03/03/18 05:00 03/03/18 05:00 03/03/18 05:00 03/03/18 05:00 Laboratory Results 03/03/18 06:05 03/03/18 06:05 03/02/18 03/03/18 03/04/18 05:59 05:59 05:59 Intake Total 1117.3 2250 Output Total 1350 2890 Balance -232.7 -640 PT 12.9 SEC (12.0-15.0) 02/25/18 15:54 INR 0.95 (0.83-1.16) 02/25/18 15:54 Holding SR. Uptrending SBPs. Borderline suppl O2 req. CXR -> no pulm vasc congestion, no residual effusions Excellent diuresis. Normalized renal fx. - Pending Discharge Pending Discharge Within 24 Hours: Yes Pending Discharge Date: 03/04/18 Pending Discharge Time: 11:00 Physical Exam - Physical Exam General Appearance: alert, no apparent distress Respiratory: lungs clear Cardiac/Chest: regular rate, rhythm, tachycardia, other (Sternotomy CDI, chest tube dressing CDI) Abdomen: non-tender, soft Skin: warm/dry Extremities: swelling (trace), other (LRA, bilat LEs venots CDI) ICD10 Worksheet Patient Problems: Problems Problem Status Onset Acute blood loss anemia Acute Acute coronary syndrome Acute Chest pain Acute Hypertension Acute Hypertensive emergency Acute S/P CABG x 5 Acute
[2018-03-03] MEDS: ONDANSETRON DISINTEGRATING 4 MG TAB PO PRN (07:38)
[2018-03-03] MEDS ORDERED: POTASSIUM CL 20 MEQ TAB PO SCH (09:00)
[2018-03-03] MEDS ORDERED: FUROSEMIDE 40 MG TAB PO SCH (09:00)
[2018-03-03] MEDS: ATORVASTATIN CALCIUM 20 MG TAB PO SCH (09:19)
[2018-03-03] MEDS: ASPIRIN EC 81 MG TAB PO SCH (09:21)
[2018-03-03] MEDS: PANTOPRAZOLE SODIUM 40 MG TAB PO SCH (09:21)
[2018-03-03] MEDS: CARVEDILOL 6.25 MG TAB PO SCH ×2 (09:22→17:17)
[2018-03-03] MEDS: amLODIPine BESYLATE 5 MG TAB PO SCH (10:33)
[2018-03-03] MEDS: SENNOSIDES/DOCUSATE SODIUM TAB PO PRN (10:42)
--- NOTE | 2018-03-03 17:21 | ASMTCAGE ---
CAGE Do you feel you ought to Answers: Yes cut down on your drinking or drug use? Do people annoy you by Answers: No criticizing your drinking or drug use? Do you feel guilty about Answers: No your drinking or drug use? 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 Additional Comments Pt was vague in his answers stating he drinks occasionally every few weeks. Provided resources for pt. Date Signed: 03/03/2018 10:40 AM Electronically Signed By:Madison Sanchez RN
--- NOTE | 2018-03-03 17:25 | ASMTCMCOM ---
CM Note CM Note Notes: 03/03/2018 Case Management Note Met w/pt to discuss d/c needs. CAGE completed, provided resources. Anticipating d/c or Thursday. Pt has a room mate to assist when needed. Pt plans for friends to provide meals or to order food delivered. Pt plans to Uber to cardiac rehab. Case Management d/c poc: home with follow up as directed. Case Management available if needs change. Date Signed: 03/03/2018 10:45 AM Electronically Signed By:Madison Sanchez RN
[2018-03-04] MEDS: OXYCODONE/APAP 5/325 TAB PO PRN ×2 (03:54→09:07)
--- NOTE | 2018-03-04 06:15 | SOAPPROG ---
SOAP Progress Note Assessment/Plan: POD #5: CABGx5 (BRUNER-LAD, SHELDON-RCA, LRA sequential D1/D2, SVG-PL circ), ligation left atrial appendage, RV muscle bx, EVH right thigh, vein exploration BLE & left thigh Acute [place]/severe 3VD sp CABGx3 - BB/ASA/statin - CCB for RA graft antispasm x3 months Acute blood loss anemia - Stable without the need for transfusions Acute vision disturbances secondary to hypoperfusion - Resolution with higher perfusion pressures - All imaging negative for acute CVA Ischemic cardiomyopathy, EF 25% - Appears euvolemic - Outpatient f/u with Dr. Reza for further HF management Long-standing HTN with LVH s/p RV bx - RV bx without evidence of myocardial etiologies (sarcoidosis, amyloidosis, malignancy) - Continue beta-logan DVT prophlyaxis - SCDs/heparin SQ Subjective: Feels well. Denies pain/SOB. Feels ready to be discharged. Objective: Vital Signs Temp Pulse Resp BP Pulse Ox 36.9 C 87 16 150/90 H 94 03/03/18 23:49 03/04/18 03:55 03/04/18 03:55 03/04/18 04:04 03/04/18 03:55 Laboratory Results 03/03/18 06:05 03/04/18 03:55 03/03/18 03/04/18 03/05/18 05:59 05:59 05:59 Intake Total 2250 1200 Output Total 2890 1600 Balance -640 -400 PT 12.9 SEC (12.0-15.0) 02/25/18 15:54 INR 0.95 (0.83-1.16) 02/25/18 15:54 Physical Exam - Physical Exam General Appearance: WD/WN, alert, no apparent distress EENT: No scleral icterus (R), No scleral icterus (L) Neck: normal inspection Respiratory: No respiratory distress Cardiac/Chest: regular rate, rhythm Abdomen: non-tender, soft, No distended Skin: normal color, warm/dry Extremities: No pedal edema Neuro/Psych: no motor/sensory deficits, alert, normal mood/affect, oriented x 3 ICD10 Worksheet Patient Problems: Problems Problem Status Onset Acute blood loss anemia Acute Acute coronary syndrome Acute Chest pain Acute Hypertension Acute Hypertensive emergency Acute S/P CABG x 5 Acute
[2018-03-04] MEDS ORDERED: CARVEDILOL 6.25 MG TAB PO SCH (08:00)
[2018-03-04] MEDS: HEPARIN 5,000 UNIT/0.5 ML INJ SC SCH ×2 (08:06→14:16)
[2018-03-04] MEDS ORDERED: AMIODARONE HCL 200 MG TAB PO SCH (09:00)
[2018-03-04] MEDS ORDERED: amLODIPine BESYLATE 5 MG TAB PO SCH (09:00)
[2018-03-04] MEDS: ASPIRIN EC 81 MG TAB PO SCH (09:06)
[2018-03-04] MEDS: ATORVASTATIN CALCIUM 20 MG TAB PO SCH (09:07)
[2018-03-04] MEDS: PANTOPRAZOLE SODIUM 40 MG TAB PO SCH (09:07)
[2018-03-04] MEDS: ONDANSETRON DISINTEGRATING 4 MG TAB PO PRN (09:08)
[2018-03-04] MEDS: SENNOSIDES/DOCUSATE SODIUM TAB PO PRN (09:11)
--- NOTE | 2018-03-04 10:51 | PDHOMEO2F ---
Home Oxygen Face to Face Home Orders: I certify that a physician or a nurse practitioner or physician's escrow assistant has had a [id number] encounter with this patient on the date of this order due to the diagnosis listed, which relates to the primary reason the patient requires home oxygen. Alternative treatments have been tried, or considered, and deemed ineffective. It is anticipated that supplemental oxygen will result in improvement with treatment. Home oxygen qualifying diagnosis: hypoxemia, atelectasis, pleural effusions, ischemic cardiomyopathy SpO2 on room air (%): 82 Frequency of home oxygen needed: continuous Home oxygen liters per minute: 2 Home oxygen delivery device: nasal cannula Concentrator: Yes E-tanks for mobility and back up: Yes If ordering portable O2, is the patient mobile in the home?: Yes I certify that, based on these findings, the home oxygen is medically necessary for this patient for the following length of time. Length of time home oxygen needed: 1 month
--- NOTE | 2018-03-04 10:54 | PDIAF ---
- Diagnosis Diagnosis: CABGx5 Code Status: Full Code - Medication Management Discharge Medications: Medications to Continue on Transfer Herbals/Supplements -Info Only 1 ea PO DAILY 02/24/18 [Last Taken Unknown] Acetaminophen [Tylenol 325mg (*)] 325 - 650 mg PO Q4HRS PRN tab 03/04/18 [Last Taken Unknown] Amiodarone HCl [Pacerone (*)] 200 mg PO BID #35 tab 03/04/18 [Last Taken Unknown ] Aspirin EC [Aspirin EC 81 mg (*)] 81 mg PO DAILY tab 03/04/18 [Last Taken Unknown] Atorvastatin Calcium [Lipitor 20 mg (*)] 20 mg PO DAILY #30 tab 03/04/18 [Last Taken Unknown] Carvedilol [Coreg (*)] 12.5 mg PO BIDMEAL #60 tab 03/04/18 [Last Taken Unknown] Furosemide [Lasix 20 MG (*)] 20 mg PO DAILY #30 tab 03/04/18 [Last Taken Unknown ] Sennosides/Docusate Sodium [Senokot-S] 1 - 2 tab PO BID PRN tab 03/04/18 [Last Taken Unknown] Sodium Cl Nasal [[place] (*)] 1 spray [place] PRN PRN btl 03/04/18 [Last Taken Unknown] amLODIPine BESYLATE [Norvasc 5 mg (*)] 5 mg PO DAILY #30 tab 03/04/18 [Last Taken Unknown] oxyCODONE/APAP 5/325 [Percocet 5/325 (*)] 1 tab PO Q6HRS PRN #30 tab 03/04/18 [ Last Taken Unknown] Discharge Medications: Refer to the Discharge Home Medication list for PRN reason. - Orders Services needed: Home Care, Registered Nurse Home Care Face to Face: I certify that this patient was under my care and that I had the required [id number] encounter meeting the encounter requirements on the discharge day. My findings support the fact that the patient is homebound as defined in Home Care Face to Face Continued: CMS Chapter 7 Medicare Benefits Manual 30.1.1 , The condition of the patient is such that there exists a normal inability to leave home and consequently, leaving home would require a considerable and taxing effort. Oxygen: 2 liters/minute via NC, continuous Diet Recommendation: cardiac -low fat low salt, fluid restriction (use comment for amount) (2 liters per day) Diet Texture: Regular Texture Diet, Thin Liquids, Meds Whole w/Liquids Weigh Patient: daily Garcia: No Additional Instructions: Call [facility] cardiac rehab to enroll in phase 2 classes if not contacted within 48hrs of discharge. Sternal precautions x 6 weeks. Avoid lifting > 10lbs with an outstretched arm. Avoid push/pull activities. No driving for 3 weeks or until cleared by surgery. Cleanse wounds once daily with soap and water. Avoid underwater immersion (pool , hot tub, bath) until scabs off. Ok to leave all wounds open to air. Avoid creams or ointments until scabs off. Elevate low legs at rest. Avoid prolonged standing or dangling. Log daily vital signs: weight, resting heart rate over 1 minute, blood pressure , pulse oximetry. Call [facility] for overnight weight gain > 2lbs, weekly gain > 5lbs or worsening leg swelling. Call [facility] for resting heart rate > 120 or < 60 OR for systolic blood pressure consistently < 90 or > 160. Target oxygen saturation > 89%. Adjustments per cardiac rehab. Please obtain a chest xray prior to surgical appointment. Use requisition form attached to appointment card. Chest x-rays don't require an appointment. Go to the Emergency Room entrance at the [facility] location. Sign in at the computer kiosk in the entryway. You will be given a number & may sit in the waiting area until called. You will be registered and directed to Imaging on the 1st floor. This process can take up to an hour. Please allow at least 30 min before your appt to get x-ray taken. Ok to use [id number] medications for iron supplementation, bowel function or pain. Consider Tylenol 500-650 mg with meals and before bed. Max daily dose of Tylenol 3000 mg. Avoid nonsteroidal anti-inflammatories (ie. Ibuprofen, advil, motrin, aleve) for interference with beneficial effects of aspirin on graft flow. - Follow Up Care Current Providers and Referrals: Altaf Reza MD [Medical Doctor] - 03/15/18 11:00 am Herrera Moran DO [Doctor of Osteopathy] - 03/09/18 10:00 am NONE *PRIMARY CARE P,. [Primary Care Provider] - As per Instructions
--- NOTE | 2018-03-04 11:43 | PDDCSUM ---
Discharge Summary Discharge Summary: ADMISSION DATE: 02/24/18 DISCHARGE DATE: 03/04/18 DISCHARGE DIAGNOSES 1. Acute myocardial infarction with unstable angina 2. Severe three vessel coronary atherosclerotic disease 3. Ischemic cardiomyopathy, EF 25% 4. Acute blood loss anemia 5. Long-standing hypertension with hypertensive emergency 6. Left ventricular hypertrophy PROCEDURES 02/18/18, Herrera Moran: 1. CABGx5 (BRUNER-LAD, SHELDON-RCA, LRA sequential D1/D2, SVG-PL circ) 2. Right ventricle biopsy 3. Ligation left atrial appendage 4. EVH right thigh, vein exploration left thigh and bilateral lower extremities HPI 42M with unstable angina and in a hypertensive emergency with negative work-up for aortic dissection found to have severe 3-vessel CAD during w/u for acute PA. HOSPITAL COURSE BY PROBLEM LIST 1. AMI with unstable angina and severe 3-vessel CAD - s/p CABGx5 utilizing bilateral mammary and left radial arteries. Beta-logan, ASA, and statin prescribed for secondary prevention. Norvasc prescribed for 90 days for radial artery graft spasm prophylaxis. 1 month of Amiodarone prescribed for AF prophylaxis. 2. Ischemic cardiomyopathy with EF of 25% - euvolemic on d/c with low-dose Lasix prescribed. Out-patient f/u with Dr. Juaquin cox for heart failure management. 3. Acute blood loss anemia - stable without the need for transfusions. 4. Long-standing HTN with hypertensive emergency and LVH - RV bx negative for myocardial issues such as sarcoidosis, amyloidosis, or malignancy. Coreg optimized for BP control. CONDITION Good DISPOSITION Home with RN services ACTIVITY Pt was instructed on sternal precautions, activity limitations, and which problems to call [facility] with. Please see Discharge Plan and Interagency Discharge Form in chart for specifics. DISCHARGE MEDICATIONS Continue: Herbals/Supplements -Info Only 1 ea PO DAILY 02/24/18 New: Acetaminophen [Tylenol 325mg (*)] 325 - 650 mg PO Q4HRS PRN Amiodarone HCl [Pacerone (*)] 200 mg PO BID #35 tab (twice daily for 7 days then once daily until tablets run out) Aspirin EC [Aspirin EC 81 mg (*)] 81 mg PO DAILY Atorvastatin Calcium [Lipitor 20 mg (*)] 20 mg PO DAILY Carvedilol [Coreg (*)] 12.5 mg PO BIDMEAL Furosemide [Lasix 20 MG (*)] 20 mg PO DAILY amLODIPine BESYLATE [Norvasc 5 mg (*)] 5 mg PO DAILY oxyCODONE/APAP 5/325 [Percocet 5/325 (*)] 1 tab PO Q6HRS PRN Discontinue: n/a PENDING STUDIES/LABS 1. CXR prior to surgical follow-up FOLLOW-UP 1. Herrera Moran, 03/09/18, 10:00 AM 2. Altaf Reza, 03/15/18, 11:00
--- NOTE | 2018-03-04 12:27 | PDIAF ---
- Diagnosis Diagnosis: CABGx5 Code Status: Full Code - Medication Management Discharge Medications: Medications to Continue on Transfer Herbals/Supplements -Info Only 1 ea PO DAILY 02/24/18 [Last Taken Unknown] Acetaminophen [Tylenol 325mg (*)] 325 - 650 mg PO Q4HRS PRN tab 03/04/18 [Last Taken Unknown] Amiodarone HCl [Pacerone (*)] 200 mg PO BID #35 tab 03/04/18 [Last Taken Unknown ] Aspirin EC [Aspirin EC 81 mg (*)] 81 mg PO DAILY tab 03/04/18 [Last Taken Unknown] Atorvastatin Calcium [Lipitor 20 mg (*)] 20 mg PO DAILY #30 tab 03/04/18 [Last Taken Unknown] Carvedilol [Coreg (*)] 12.5 mg PO BIDMEAL #60 tab 03/04/18 [Last Taken Unknown] Furosemide [Lasix 20 MG (*)] 20 mg PO DAILY #30 tab 03/04/18 [Last Taken Unknown ] amLODIPine BESYLATE [Norvasc 5 mg (*)] 5 mg PO DAILY #30 tab 03/04/18 [Last Taken Unknown] oxyCODONE/APAP 5/325 [Percocet 5/325 (*)] 1 tab PO Q6HRS PRN #30 tab 03/04/18 [ Last Taken Unknown] Discharge Medications: Refer to the Discharge Home Medication list for PRN reason. - Orders Services needed: Home Care, Registered Nurse Home Care Face to Face: I certify that this patient was under my care and that I had the required [id number] encounter meeting the encounter requirements on the discharge day. My findings support the fact that the patient is homebound as defined in Home Care Face to Face Continued: CMS Chapter 7 Medicare Benefits Manual 30.1.1 , The condition of the patient is such that there exists a normal inability to leave home and consequently, leaving home would require a considerable and taxing effort. Oxygen: 2 liters/minute via NC, continuous Diet Recommendation: cardiac -low fat low salt, fluid restriction (use comment for amount) (2 liters per day) Diet Texture: Regular Texture Diet, Thin Liquids, Meds Whole w/Liquids Weigh Patient: daily Garcia: No Additional Instructions: Call [facility] cardiac rehab to enroll in phase 2 classes if not contacted within 48hrs of discharge. Sternal precautions x 6 weeks. Avoid lifting > 10lbs with an outstretched arm. Avoid push/pull activities. No driving for 3 weeks or until cleared by surgery. Cleanse wounds once daily with soap and water. Avoid underwater immersion (pool , hot tub, bath) until scabs off. Ok to leave all wounds open to air. Avoid creams or ointments until scabs off. Elevate low legs at rest. Avoid prolonged standing or dangling. Log daily vital signs: weight, resting heart rate over 1 minute, blood pressure , pulse oximetry. Call [facility] for overnight weight gain > 2lbs, weekly gain > 5lbs or worsening leg swelling. Call [facility] for resting heart rate > 120 or < 60 OR for systolic blood pressure consistently < 90 or > 160. Target oxygen saturation > 89%. Adjustments per cardiac rehab. Please obtain a chest xray prior to surgical appointment. Use requisition form attached to appointment card. Chest x-rays don't require an appointment. Go to the Emergency Room entrance at the [facility] location. Sign in at the computer kiosk in the entryway. You will be given a number & may sit in the waiting area until called. You will be registered and directed to Imaging on the 1st floor. This process can take up to an hour. Please allow at least 30 min before your appt to get x-ray taken. Ok to use [id number] medications for iron supplementation, bowel function or pain. Consider Tylenol 500-650 mg with meals and before bed. Max daily dose of Tylenol 3000 mg. Avoid nonsteroidal anti-inflammatories (ie. Ibuprofen, advil, motrin, aleve) for interference with beneficial effects of aspirin on graft flow. - Follow Up Care Current Providers and Referrals: Altaf Reza MD [Medical Doctor] - 03/15/18 11:00 am Herrera Moran DO [Doctor of Osteopathy] - 03/09/18 10:00 am NONE *PRIMARY CARE P,. [Primary Care Provider] - As per Instructions
--- NOTE | 2018-03-04 12:55 | ASMTDCNOTE ---
Case Management Discharge Discharge Order Complete? Answers: Yes Patient to Obtain Answers: Independently Medications Transportation Arranged Answers: Family/Friends EMTALA Complete Answers: No Case Management Transport Answers: No Form Complete Faxed Final Orders Answers: Yes Agency/Facility Transfer Answers: Yes Report Printed & Faxed to Receiving Agency Family Notified Answers: No Discharge Comments Notes: Pts case discussed w/ Dr. Moran, Marcos, PA and DANDRE Bautista. Dr. Moran is requesting that pt is being follow by a HC, RN. CM spoke to Whitney, district customs director. Whitney approved for a few visits by [facility]. CM notified Chelsie Dunlap of this. Pt is being discharged today. CM met w/ pt for dispo planning. Pt reports that his friend is able to pick him up. Pt reports that he is able to pay the $70 for 10 cardiac rehab sessions. [facility] is able to see pt tomorrow. CM confirmed pts phone number and address. CM available for changes. Plan: DOMINIQUE; RN w/ outpatient cardiac rehab Date Signed: 03/04/2018 12:37 PM Electronically Signed By:TERESA Crowe
--- NOTE | 2018-03-04 12:56 | ASMTLACE ---
ZHANGE Length of stay for Answers: 7-13 days current admission Acuity / Level of Answers: Yes Care: Did the patient have an inpatient admission? Comorbidities - select Answers: Other Notes: HTN all that apply # of Emergency department Answers: 1-2 visits in the last 6 months Social determinants Answers: History of substance abuse (ETOH, street drugs, prescription drugs, etc.) Score: 13 Date Signed: 03/04/2018 12:38 PM Electronically Signed By:TERESA Crowe
--- NOTE | 2018-03-04 14:30 | WOCRNPDOC ---
WOCRN Advanced Assessment Note - Skin Integrity Problem, Advanced Assess Left Ear Pressure Injury Dressing Type: Open to Air Exudate Amount: Scant Exudate Color: Yellow Exudate Characteristic(s): Serous Mary Wound Tissue: Blanching, Erythema Wound Bed Color: [place] Wound Bed Constitution: Red/[place] - Non Granular Tissue Wound Edges: Well Defined Site Odor: None Site Measurement - Head-to-Toe Length X Width X Depth (cm): 0.4x0.2x0.2 Pressure Injury Stage: Stage 3 Pressure Injury Present on Admit: No Skin Integrity Problem Comment: Patient was seen today as part of the PIPP ( Pressure Injury Prevalence Project). He complained of pain on his ears, under the oxygen tubing. Patient wearing oxygen without padding. Tubing lifted off patient's skin to reveal an open, non-blanching area. Pads placed on oxygen tubing and this RN returned 30 minutes later to inspect the area. Mary-wound skin now blanching but there is a small area of full thickness breakdown on top of the ears. This appears to be a medical staff services manager related, hospital acquired pressure injury. Area cleaned with NS and gauze. Wound bed covered with adhered yellow slough easily removed with the gauze. Advised patient about home care and cleaning the area. Advised continuous use of the padding on the tubing for as long as he remains on oxygen. Placed DC instructions to consult the [facility] if he has issues healing the wound. All patient questions answered. Patient is scheduled to DC today so wound care will not continue to round. Right Ear Pressure Injury Dressing Type: Open to Air Mary Wound Tissue: Blanching, Erythema Wound Bed Constitution: Dried Exudate Wound Edges: Attached, Well Defined Site Measurement - Head-to-Toe Length X Width X Depth (cm): 0.3x0.3x0.2 Pressure Injury Stage: Stage 3 Pressure Injury Present on Admit: No Skin Integrity Problem Comment: lead qa analyst related, hospital acquired pressure injury related to oxygen tubing. Wound bed cleaned with NS and gauze. Care instructions provided to patient. All questions answered.
[2018-03-04] MEDS ORDERED: CANN-EASE 2 GM TUBE TP PRN (14:44)
[2018-03-04] MEDS: traMADol 50 MG TAB PO PRN (15:59)
[2018-03-04 16:04] VITALS: BP 137/104
== END 2018-03-04 17:15 | disposition home health service (06) | DRG 234 ==
LOC: EEVIPCON 16:31 → F2N 19:14 → F2W 02-25 12:50 → F2N 02-26 10:17 → F2W 03-01 13:55
PROVIDERS: ADMIT Internal Medicine Interventional Cardiology; ATTEND Thoracic Surgery (Cardiothoracic Vascular Surgery)
PROC: B2111ZZ Fluoroscopy of Multiple Coronary Arteries using Low Osmolar Contrast (ICD-10-PCS; 2018-02-25)
PROC: 4A023N7 Measurement of Cardiac Sampling and Pressure, Left Heart, Percutaneous Approach (ICD-10-PCS; 2018-02-25)
PROC: B2151ZZ Fluoroscopy of Left Heart using Low Osmolar Contrast (ICD-10-PCS; 2018-02-25)
PROC: 02100Z8 Bypass Coronary Artery, One Artery from Right Internal Mammary, Open Approach (ICD-10-PCS; principal; 2018-02-26 07:15)
PROC: 02100Z9 Bypass Coronary Artery, One Artery from Left Internal Mammary, Open Approach (ICD-10-PCS; principal; 2018-02-26 07:15)
PROC: 5A1221Z Performance of Cardiac Output, Continuous (ICD-10-PCS; principal; 2018-02-26 07:15)
PROC: 02B Heart and Great Vessels, Excision (ICD-10-PCS; principal; 2018-02-26 07:15)
PROC: 06BQ4ZZ Excision of Left Saphenous Vein, Percutaneous Endoscopic Approach (ICD-10-PCS; principal; 2018-02-26 07:15)
PROC: 02100AW Bypass Coronary Artery, One Artery from Aorta with Autologous Arterial Tissue, Open Approach (ICD-10-PCS; principal; 2018-02-26 07:15)
PROC: 02L70CK Occlusion of Left Atrial Appendage with Extraluminal Device, Open Approach (ICD-10-PCS; principal; 2018-02-26 07:15)
DX: I21.4 Non-ST elevation (NSTEMI) myocardial infarction (principal); I25.110 Atherosclerotic heart disease of native coronary artery with unstable angina pectoris; I16.1 Hypertensive emergency; D62 Acute posthemorrhagic anemia; I51.7 Cardiomegaly; I25.5 Ischemic cardiomyopathy; Z91.14 Patient's other noncompliance with medication regimen; F17.210 Nicotine dependence, cigarettes, uncomplicated
CPT/HCPCS: 82435-PO; 82565-PO; 82947-PO; 84132-PO; 84295-PO; 84484-PO; 84520-PO; 85014-PO; 85520-90; 96365; 97116-GP; 97161-GP; 97166-GO; 97530-GO; 97530-GP; 97535-GO; C1769; G0009; J0153; J0282; J0690; J1100; J1170; J1265; J1644; J1815; J1940; J2001; J2060; J2150; J2250; J2260; J2270; J2370; J2405; J2440; J2704; J2720; J2765; J2930; J3010; J3475; J3480; J7060; P9041; Q9967

== ENCOUNTER → 2018-03-09 | Outpatient (CLI) | payer OTHER | LOC: FIMAGING 09:07 | PROVIDERS: ATTEND Thoracic Surgery (Cardiothoracic Vascular Surgery) | DX: J90 Pleural effusion, not elsewhere classified (principal); I51.7 Cardiomegaly; Z95.1 Presence of aortocoronary bypass graft ==

== ENCOUNTER 2018-05-31 17:05 | Emergency (ER) | payer SELFPAY ==
[2018-05-31] MEDS ORDERED: LORazepam 2 MG/ML INJ IVP ONE (17:31)
--- NOTE | 2018-05-31 17:31 | EDPHY ---
H & P Stated Complaint: ELEVATED DIASTOLIC BP POST CARDIAC REHAB/ANXIETY Source: Patient, Old records Exam Limitations: No limitations - Personal History Current Tetanus Diphtheria and Acellular Pertussis (TDAP): Yes - Medical/Surgical History Hx Asthma: No Hx Chronic Respiratory Disease: No Hx Diabetes: No Hx Cardiac Disease: Yes Hx Renal Disease: No Hx Cirrhosis: No Hx Alcoholism: No Hx HIV/AIDS: No Hx Splenectomy or Spleen Trauma: No Other PMH: HTN, appy, coccaine abuse - Social History Smoking Status: Current every day smoker Time Seen by Provider: 05/31/18 17:23 HPI/ROS: HPI: This is a 42-year-old male who presents with Chief Complaint: ELEVATED DIASTOLIC BP/POST CARDIAC REHAB/ANXIETY Location: Heart Quality: Elevated diastolic pressure and anxiety and depression Duration: Several weeks Signs and Symptoms: no shortness of breath at rest, no shortness of breath on exertion, no cough, no chest pain, no palpitations, no lower extremity edema, no wheezing, no orthopnea, no paroxysmal nocturnal dyspnea, no fever, no injury/ trauma, no hemoptysis, no carpal pedal spasms Timing: Acute, constant Severity: Moderate Context: Patient has a history of acute myocardial infarction with unstable angina in February of 2018 with severe three-vessel coronary atherosclerotic disease and ischemic cardiomyopathy with an EF of 25%, hypertension, left ventricular hypertrophy presents with complaints of elevated diastolic blood pressure in the 90s as high as 93 over the last 1 week. He also complains of anxious, being tired and working a lot and feeling depressed. He is not sleeping well. Reports that he "could cry at any moment." Today was his last day of cardiac rehab completing 12 weeks. He reports that 1 month ago his medications were reduced; unsure of which medications. He reports compliance in taking his medications. He misses echocardiogram 1 week ago due to financial burden. Patient was on an antidepressant approximately 10 years ago but none since. He denies any homicidal ideation, suicidal ideation, hallucinations. He reports that around this time of year he does get more depressed than usual. Denies any alcohol, tobacco or drug use. Patient is managed by Dr. Reza. Patient reports that he return to work 3 weeks ago. Modifying Factors: Compliance with home medications which are Coreg 12.5 mg, lisinopril 10 mg, furosemide 20 mg 2 times per week, atorvastatin, Aldactone 25 mg. Comment: ROS: A comprehensive 10 system review of systems is otherwise negative aside from elements mentioned in the history of present illness. MEDICAL/SURGICAL/SOCIAL HISTORY: Medical history: Hypertension, prior cocaine abuse, acute myocardial infarction , coronary artery disease, anemia, hypertension, LVH Surgical history: Appendectomy, CABG times 5 Social history: Employed as a [employer] operator. Nonsmoker. CONSTITUTIONAL: Anxious, well-appearing adult white male, awake and alert, no obvious distress HEENT: Atraumatic and normocephalic, PERRL, EOMI. Nares patent; no rhinorrhea; no nasal mucosal edema. Tympanic membranes clear. Oropharynx clear, no exudate and moist pink mucosa. Airway patent. No lymphadenopathy. No meningismus. No JVD. Cardiovascular: Normal S1/S2, regular rate, regular rhythm, without murmur rub or gallop. PULMONARY/CHEST: Symmetrical and nontender. Well-healed remote midsternal chest incision noted. Clear to auscultation bilaterally. Good air movement. No accessory muscle usage. ABDOMEN: Soft, nondistended, nontender, no rebound, no guarding, no peritoneal signs, no masses or organomegaly. No CVAT. EXTREMITIES: 2/2 pulses, strength 5/5, no deformities, no clubbing, no cyanosis or pitting edema. NEUROLOGICAL: no focal neuro deficits. GCS 15. SKIN: Warm and dry, no erythema. no rash. Good capillary refill. (Halle Henderson) Constitutional: Initial Vital Signs Temperature (C) 36.5 C 05/31/18 17:09 Heart Rate 59 L 05/31/18 17:09 Respiratory Rate 18 05/31/18 17:09 Blood Pressure 133/99 H 05/31/18 17:09 O2 Sat (%) 98 05/31/18 17:09 O2 Delivery Mode Room Air Allergies/Adverse Reactions: Sulfa (Sulfonamide Antibiotics) Allergy (Verified 05/31/18 17:07) Home Medications: Medication Instructions Recorded Herbals/Supplements -Info Only 1 ea PO DAILY 02/24/18 Acetaminophen [Tylenol 325mg (*)] 325 - 650 mg PO Q4HRS PRN tab 03/04/18 Aspirin EC [Aspirin EC 81 mg (*)] 81 mg PO DAILY tab 03/04/18 Atorvastatin Calcium [Lipitor 20 20 mg PO DAILY #30 tab 03/04/18 mg (*)] Carvedilol [Coreg (*)] 12.5 mg PO BIDMEAL #60 tab 03/04/18 Furosemide [Lasix 20 MG (*)] 20 mg PO DAILY #30 tab 03/04/18 Aldactone 05/31/18 Lisinopril 05/31/18 Medical Decision Making - Diagnostics EKG Interpretation: EKG: Complete interpretation has been separately recorded in the [facility] archive. Summary impression: Sinus rhythm, left atrial enlargement, no ST segment elevation or depression noted (Bubba Pena) ED Course/Re-evaluation: Vital signs reviewed and stable upon arrival with a blood pressure 133/99. Placed on monitoring tech. EKG ordered and shows normal sinus rhythm with rate of 62 beats per minute with nonspecific ST changes. IV access and laboratory studies including a POC troponin ordered Patient given IV Ativan 0.5 mg 1750: Laboratory studies reviewed. No signs of leukocytosis/anemia/platelet dysfunction/BASSAM/electrolyte imbalance/VTE/CHF. 1815: Troponin 0.01. Case management consult with sharing who gave patient resources to establish care at the [facility] and [facility]. This patient was seen under the supervision of my secondary supervising physician. Discussed this patient with Dr. Pena who did not see the patient. (Halle Henderson) Differential Diagnosis: Differential diagnosis includes but is not limited to unstable angina, CHF, hypertension, ischemic cardiomyopathy, anxiety and depression. (Halle Henderson) - Data Points Laboratory Results: Laboratory Results 05/31/18 17:38 05/31/18 17:38 05/31/18 05/31/18 05/31/18 17:42 17:38 17:38 WBC 5.30 10^3/uL 10^3/uL (3.80-9.50) RBC 4.85 10^6/uL 10^6/uL (4.40-6.38) Hgb 13.9 g/dL g/dL (13.7-17.5) Hct 39.7 % L % (40.0-51.0) MCV 81.9 fL fL (81.5-99.8) MCH 28.7 pg pg (27.9-34.1) MCHC 35.0 g/dL g/dL (32.4-36.7) RDW 13.8 % % (11.5-15.2) Plt Count 208 10^3/uL 10^3/uL (150-400) MPV 9.1 fL fL (8.7-11.7) Neut % (Auto) 62.1 % % (39.3-74.2) Lymph % (Auto) 28.1 % % (15.0-45.0) [place] % (Auto) 8.9 % % (4.5-13.0) Eos % (Auto) 0.0 % L % (0.6-7.6) Baso % (Auto) 0.0 % L % (0.3-1.7) Nucleat RBC Rel Count 0.0 % % (0.0-0.2) Absolute Neuts (auto) 3.29 10^3/uL 10^3/uL (1.70-6.50) Absolute Lymphs (auto) 1.49 10^3/uL 10^3/uL (1.00-3.00) Absolute Monos (auto) 0.47 10^3/uL 10^3/uL (0.30-0.80) Absolute Eos (auto) 0.00 10^3/uL L 10^3/uL (0.03-0.40) Absolute Basos (auto) 0.00 10^3/uL L 10^3/uL (0.02-0.10) Absolute Nucleated RBC 0.00 10^3/uL 10^3/uL (0-0.01) Immature Gran % 0.9 % % (0.0-1.1) Immature Gran # 0.05 10^3/uL 10^3/uL (0.00-0.10) Sodium 140 mEq/L mEq/L (135-145) Potassium 4.4 mEq/L mEq/L (3.5-5.2) Chloride 104 mEq/L mEq/L (97-110) Carbon Dioxide 26 mEq/l mEq/l (22-31) Anion Gap 10 mEq/L mEq/L (6-14) BUN 19 mg/dL mg/dL (7-23) Creatinine 1.4 mg/dL H mg/dL (0.7-1.3) Estimated GFR 56 Glucose 106 mg/dL H mg/dL (70-100) Calcium 9.5 mg/dL mg/dL (8.5-10.4) POC Troponin I 0.01 ng/mL ng/mL (0.00-0.08) NT-Pro-B Natriuret Pep 388 pg/mL H pg/mL (0-125) Medications Given: Discontinued Medications Lorazepam (Ativan Injection) 0.5 mg IVP EDNOW ONE Stop: 05/31/18 17:32 Last Admin: 05/31/18 17:38 Dose: 0.5 mg Point of Care Test Results: Chemistry 05/31/18 17:42 POC Troponin I 0.01 ng/mL ng/mL (0.00-0.08) Departure - Departure Disposition: Home, Routine, Self-Care Clinical Impression: History of myocardial infarction, greater than 8 weeks ago, Anxiety with depression Condition: Good Instructions: Generalized Anxiety Disorder (ED), Hypertension (ED) Additional Instructions: [facility]. Please take the next 2 days off to practice relaxation techniques. Call 911 if you have thoughts of hurting or killing yourself or anyone else, or have any new or worsening symptoms that concern you. Referrals: Altaf Reza MD [Medical Doctor] - As per Instructions [facility],. [Clinic] - As per Instructions [facility],. [Clinic] - As per Instructions
--- NOTE | 2018-05-31 17:39 | CPEKG ---
Test Reason : OPEN Blood Pressure : / mmHG Vent. Rate : 067 BPM Atrial Rate : 068 BPM P-R Int : 190 ms QRS Dur : 096 ms QT Int : 400 ms P-R-T Axes : 076 002 085 degrees QTc Int : 423 ms Sinus rhythm Left atrial enlargement ST elev, probable normal early repol pattern Confirmed by Bubba Pena ([id number]) on 05/31/2018 5:38:43 PM Referred By: Confirmed By:Bubba Pena
[2018-05-31 17:50] LABS: PLATELET COUNT 208 10^3/uL (150-400)
[2018-05-31 19:07] VITALS: BP 125/91
== END 2018-05-31 19:05 | disposition home or self-care (01) ==
DX: I25.2 Old myocardial infarction (principal); F41.9 Anxiety disorder, unspecified; F32.9 Major depressive disorder, single episode, unspecified; I10 Essential (primary) hypertension
CPT/HCPCS: 84484-PO; 96374; J2060

== ENCOUNTER 2018-07-31 16:58 | Emergency (ER) | payer OTHER ==
--- NOTE | 2018-07-31 17:23 | CPEKG ---
Test Reason : OPEN Blood Pressure : / mmHG Vent. Rate : 125 BPM Atrial Rate : 125 BPM P-R Int : 174 ms QRS Dur : 087 ms QT Int : 297 ms P-R-T Axes : 070 080 081 degrees QTc Int : 429 ms Sinus tachycardia Consider left ventricular hypertrophy Inferior infarct, acute (RCA) ST elevation, consider anterior injury Probable RV involvement, suggest recording right precordial leads Confirmed by Boin Ni ([id number]) on 07/31/2018 5:23:00 PM Referred By: PHYSICIAN ED Confirmed By:Boni Ni
[2018-07-31] MEDS ORDERED: LORazepam 2 MG/ML INJ IVP ONE (17:25)
[2018-07-31] MEDS ORDERED: NITROGLYCERIN 0.4 MG BTL SL PRN (17:30)
--- NOTE | 2018-07-31 17:30 | EDPHY ---
General - History Smoking Status: Current every day smoker Time Seen by Provider: 07/31/18 17:15 Narrative: CLINICAL IMPRESSION: Chest pain, cocaine abuse ASSESSMENT/PLAN: 42-year-old male with a significant past medical history of coronary artery disease status post quintuple bypass in February of 2018, echocardiogram showing ejection fraction of 25% at that time, presents to the emergency department with complaints of chest pain after abusing cocaine today. Patient reports he was cleaned off drugs since the holidays. He reports he had difficulty at work and started abusing cocaine at 4:00 a.m. This morning, stopping 1 hr prior to arrival. Chest tightness resolved during ED stay. Patient received IV fluids, nitro, and Ativan. Initial tachycardia of 138 improved to 107. Troponin negative, EKG shows sinus tachycardia, LVH, early repolarization, no acute ST or T-wave change reviewed with Dr. Ni. Remainder of lab work reassuring. Patient is compliant with medications. He recently established care with [facility] but has not yet seen a [facility] lump inspector. Given significant risk factors, we have recommended admission and I discussed his case with [facility]. I spoke with Dr. Gaitan who discussed with hospitalist who agrees to admit the patient to Dr. Lakia Juárez service. Patient will go by ALS. Stable at this time. Dr. Ni aware. DIFFERENTIAL DX: Differential diagnosis includes but not limited to myocardial ischemia, pulmonary embolus, chest wall pain, pleural inflammation, musculoskeletal chest wall pain, aortic aneurysm, and pulmonary infectious causes. ED PROCEDURES: See lab results and imaging results below ED COURSE: 5:20 p.m.: Patient evaluated by me. EKG completed and reviewed with Dr. Ni. Sinus tachycardia, LVH with early repol pattern. Will dose with Ativan and Nitro. standard cardiac labs and CXR ordered. 6:20 p.m.: Labs reviewed, no significant abnormality. Chest x-ray without acute abnormality. Case reviewed with Dr. Ni. Patient reassessed, states he is pain-free and just test use the restroom. However given significant risk factors I recommended admission. Will discuss with [facility] 6:23 p.m.: Discussed with [facility] for admission. 6:30 p.m.: Discussed with from [facility]. She will look for bed availability at [facility] and call us back. 6:40 p.m.: [facility] called back, accepting physician, Dr. Lakia Dominguez. [facility] to set up transport through [facility]. patient stable with HR of 107. No CP at this time. Discussed with Dr. Ni. CHIEF COMPLAINT: Chest tightness HPI: 42-year-old male with a significant cardiac history including a quintuple bypass in February of last year by a [facility] surgeon. At that time, patient presented with chest pain, exercise intolerance, and shortness of breath. He reports no known cardiac history although is adopted. He does report a history of cocaine abuse. He stopped using cocaine after that surgery , admits to using it once over the holidays, and then admits to using it again today, intranasally, intermittently between 4:00 a.m. And 1 hr ago. Patient presents feeling "scared and stupid". Patient denies shortness of breath, nausea, vomiting, dizziness, lightheadedness, abdominal pain, back pain, arm neck or jaw pain. Patient reports he came to the ED because he was initially feeling some chest pain but now describes this as only a tight sensation. He is compliant with his medications. He has not regularly seen a lump inspector and recently obtained [facility] insurance as of June, he has an appointment with [facility] lump inspector August 11. PAST MEDICAL HISTORY: Coronary artery disease status post quintuple bypass in February 2018 See nurse/triage notes for additional history if applicable Pertinent Past Surgical History: Quintuple bypass Family History: Unknown, patient is job did Social History: Everyday smoker, abuses cocaine REVIEW OF SYSTEMS: All other systems negative Constitutional: No fever, no chills, appetite change. Eyes: No discharge, vision change ENT: No sore throat, congestion, ear pain. Cardiovascular: No chest pain, no palpitations. Respiratory: No cough, no shortness of breath. Gastrointestinal: No abdominal pain, no vomiting, diarrhea. Genitourinary: No hematuria, dysuria, flank pain, pelvic pain Musculoskeletal: No back pain, joint swelling, joint pain, myalgias. Skin: No rashes, color change. Neurological: No headache, dizziness, weakness. PHYSICAL EXAM: General Appearance: Alert, oriented, appropriate, cooperative, anxious appearing, NAD, well hydrated, non-toxic appearing, tachycardic, hypertensive no hypoxia. HEENT: TMs are clear bilaterally no perforation or FB, no injection, no evidence of serous or mucopurulent otitis. No evidence of septal perforation Oropharynx clear is no erythema or exudates, no tonsillar hypertrophy or asymmetry. Dentition without abnormality. Eyes: Enlarged pupils bilaterally. PEERLA no acute vision change, nystagmus, swelling, discharge, pain or photosensitivity. Conjunctiva pink, no pallor or injection Neck: Supple, nontender, no lymphadenopathy, no midline pain, FROM, no meningismus. Respiratory: There are no retractions, lungs are clear to auscultation. Large scar to sternum from recent CABG Cardiac: Tachycardic, regular rhythm, no murmur or gallop] Gastrointestinal: Abdomen is soft, nontender, bowel sounds normal, no masses/ hernia, no rigidity, guarding or focal peritoneal findings. Neurological: Alert and oriented x 3, CN 2-12 grossly intact, normal gait no ataxia, DTR's intact, normal sensation and strength Skin: Warm, dry, no rashes, no nodules on palpation. Musculoskeletal: Extremities are symmetrical, full range of motion, no tenderness, deformity, swelling, or erythema. No asymmetric lower extremity edema or calf tenderness Psychiatric: Patient is oriented X 3, there is no agitation. MEDICAL DECISION MAKING: Patient was seen independently. Secondary supervising physician at time of evaluation was Dr. Ni. Diagnosis: Chest tightness, cocaine abuse . New, requires workup Summary: See Assessment and Plan for summary of ED visit Clinical lab tests: ordered / reviewed. Independent visualization of images, tracing, or specimens: Yes / No. Decision to obtain medical records or history from someone other than the patient: No Review / Summarize previous medical records: Reviewed past ED and admission records Discussed patient with another provider: Dr. Ni, [facility] Patient Progress: Stable for transport to [facility]. (Nathan Beavers) Medical Decision Making: An EKG obtained and was read and documented in trace view. Please see trace view for full reading and report. Sinus tachycardia, LVH with repolarization, similar to previous, no acute ischemic changes. (Boni Ni) - Objective Vital Signs: Initial Vital Signs Temperature (C) 36.7 C 07/31/18 16:59 Heart Rate 134 H 07/31/18 16:59 Respiratory Rate 16 07/31/18 16:59 Blood Pressure 174/120 H 07/31/18 16:59 O2 Sat (%) 95 07/31/18 16:59 O2 Delivery Mode Room Air Allergies/Adverse Reactions: Sulfa (Sulfonamide Antibiotics) Allergy (Verified 05/31/18 17:07) Home Medications: Medication Instructions Recorded Herbals/Supplements -Info Only 1 ea PO DAILY 02/24/18 Acetaminophen [Tylenol 325mg (*)] 325 - 650 mg PO Q4HRS PRN tab 03/04/18 Aspirin EC [Aspirin EC 81 mg (*)] 81 mg PO DAILY tab 03/04/18 Atorvastatin Calcium [Lipitor 20 20 mg PO DAILY #30 tab 03/04/18 mg (*)] Carvedilol [Coreg (*)] 12.5 mg PO BIDMEAL #60 tab 03/04/18 Furosemide [Lasix 20 MG (*)] 20 mg PO DAILY #30 tab 03/04/18 Aldactone 05/31/18 Lisinopril 05/31/18 Laboratory Results: Laboratory Results 07/31/18 17:15 07/31/18 17:15 Medications Given: Discontinued Medications Sodium Chloride (Ns) 1,000 mls @ 0 mls/hr IV EDNOW ONE; Wide Open PRN Reason: Protocol Stop: 07/31/18 17:26 Last Admin: 07/31/18 17:33 Dose: 1,000 mls Lorazepam (Ativan Injection) 1 mg IVP EDNOW ONE Stop: 07/31/18 17:26 Last Admin: 02/09/19 17:34 Dose: 1 mg Nitroglycerin (Nitrostat) 0.4 mg SL Q5M PRN PRN Reason: Chest Pain Last Admin: 07/31/18 17:35 Dose: 0.4 mg Point of Care Test Results: Chemistry 07/31/18 17:16 POC Troponin I 0.00 ng/mL ng/mL (0.00-0.08) Departure - Departure Disposition: Acute Care Hospital [facility] Clinical Impression: Chest pain Referrals: Altaf Delgado MD [Primary Care Provider] - As per Instructions
[2018-07-31 17:31] LABS: PLATELET COUNT 246 10^3/uL (150-400)
[2018-07-31] MEDS: NS 1,000 ML IV ONE ×2 (17:32→17:33)
[2018-07-31 19:40] VITALS: BP 134/88
== END 2018-07-31 19:40 | disposition short-term general hospital (02) ==
DX: R07.9 Chest pain, unspecified (principal); F14.10 Cocaine abuse, uncomplicated; F17.200 Nicotine dependence, unspecified, uncomplicated; I25.10 Atherosclerotic heart disease of native coronary artery without angina pectoris; E86.9 Volume depletion, unspecified; Z95.1 Presence of aortocoronary bypass graft
CPT/HCPCS: 84484-ER; 96374; J2060